=== PATIENT | female | born 1960 | race Hispanic/Latino ===

== ENCOUNTER 2025-02-12 09:00 | Inpatient (IN) | payer OTHER ==
[~2025-02-12] VITALS: Ht 160 cm; Wt 89.9 kg
[~2025-02-12 09:00] MED LIST: ASPI-1005 PO; INSU3INS3 SQ; MYCO500T5 PO; NITR0.4T50 SL; TACR1CAP10 PO
[2025-02-26 12:34] VITALS: BP 173/69; PULSE 59; RESP 13; TEMP 97.2
[2025-02-26 12:34] LABS: BASOPHILS # (AUTO) 0.06 K/uL (0.00-0.20); BASOPHILS % (AUTO) 0.9 % (0.0-5.0); EOSINOPHILS # (AUTO) 0.17 K/uL (0.00-0.70); EOSINOPHILS % (AUTO) 2.5 % (0.0-8.0); HEMATOCRIT 36.7 % (36-48); IMMATURE GRANULOCYTE ABSOLUTE 0.02 K/uL (0-1); LYMPHOCYTES # (AUTO) 1.3 K/uL (1.0-4.8); LYMPHOCYTES % (AUTO) 19.4 % (21.0-51.0); MEAN CORPUSCULAR HEMOGLOBIN 28.9 pg (27.0-33.0); MEAN CORPUSCULAR HGB CONC 32.2 g/dL (32.0-36.0); MEAN CORPUSCULAR VOLUME 89.7 fL (79-99); MONOCYTES # (AUTO) 0.4 K/uL (0.1-1.0); MONOCYTES % (AUTO) 5.8 % (3.0-13.0); NEUTROPHILS # (AUTO) 4.8 K/uL (1.8-7.7); NEUTROPHILS % (AUTO) 71.1 % (40.0-77.0); PLATELET COUNT (AUTO) 221 K/uL (130-400); RED BLOOD CELL COUNT(AUTO) 4.09 MIL/uL (4.00-5.50); RED CELL DISTRIBUTION WIDTH 13.5 % (11.0-15.5); WHITE BLOOD COUNT (AUTO) 6.8 K/uL (4.8-10.8)
[2025-02-26 12:40] LABS: HEMOGLOBIN A1C 5.9 % (4.0-6.0)
[2025-02-26 12:41] LABS: INR 0.97 (0.85-1.15); PROTHROMBIN TIME 10.3 SEC (9.6-11.6)
[2025-02-26 12:42] LABS: PARTIAL THROMBOPLASTIN TIME 24.1 SEC (26.3-35.5)
[2025-02-26 12:44] LABS: ALBUMIN 4.1 g/dL (3.5-5.0); BILIRUBIN,TOTAL 0.5 mg/dL (0.2-1.0); CREATININE 1.1 mg/dL (0.5-1.0); POTASSIUM 4.5 mmol/L (3.5-5.1); TOTAL PROTEIN, SERUM 7.2 g/dL (6.0-8.3)
[2025-02-26 12:59] LABS: B-TYPE NATRIURETIC PEPTIDE 73 pg/mL (0-100)
[2025-02-26 13:24] LABS: ABG BASE EXCESS -7.3 mmol/L (-2.0-3.0); ABG HCO3 17.1 mmol/L (21.0-28.0); ABG OXYGEN SATURATION 96.9 % (94.0-98.0); ABG PCO2 31 mmHg (32-45); ABG PH 7.357 (7.350-7.450); CARBON MONOXIDE 0.2 % (0.5-1.5); DEVICE COMMENT RR RA; HHb 3.1; PO2, ARTERIAL BG 91.4 mmHg (83.0-108.0)
--- NOTE | 2025-02-26 14:00 | HMCIMG ---
Carotid Duplex and color-flow Doppler bilateral Clinical Information: SURGERY DATE 03/01/25 Comparison: None Findings: Mild left common carotid artery bifurcation plaque is seen. No hemodynamically significant stenosis noted. Left Internal Carotid Artery Peak Systolic Velocity (PSV), Left Internal Carotid to Common Carotid Artery peak systolic velocity ratio, Right Internal Carotid Artery Peak Systolic Velocity (PSV) and Right Internal Carotid to Common Carotid Artery peak systolic velocity ratio, are all within normal limits. External carotid artery velocities normal bilaterally. Bilateral vertebral arteries show normal velocities and waveforms with antegrade flow. Impression: No hemodynamically significant stenosis noted. NASCET CRITERIA. The degree of internal carotid artery stenosis is based on NASCET criteria. Normal is no stenosis. Mild is less than 50% stenosis. Moderate is 50-69% stenosis. Severe is 70% to 99% stenosis. Total occlusion is no detectable patent lumen.
--- NOTE | 2025-02-26 14:13 | EKG ---
[facility] Test Date: 2025-02-26 Test Time: 12:26:50 Pat Name: HARI GTZ Department: Patient ID: [id number] Room: Gender: F Esl Instructional Assistant: [id number] : 1960 Requested By: SUE SCHAFFER Order Number: [id number] Reading MD: Gloria Rodriguez Measurements Intervals [place] Rate: 59 P: 20 AR: 135 QRS: -23 QRSD: 103 T: 22 QT: 404 QTc: 400 Interpretive Statements Sinus rhythm Low voltage, precordial leads Probable left ventricular hypertrophy Compared to ECG 01/04/2025 13:07:39 Early repolarization no longer present Electronically Signed On 02-26-2025 18:39:54 CDT by Gloria Rodriguez Please click the below link to view image of tracing.
[2025-02-26] MEDS ORDERED: BRIM5DRO5 OS (14:21)
[2025-02-26] MEDS ORDERED: ATOR10 PO (14:21)
[2025-02-26] MEDS ORDERED: INSU100I3 SQ (14:21)
[2025-02-26] MEDS ORDERED: XALA2.5OS OS (14:21)
[2025-02-26] MEDS ORDERED: ISOS30TA92 PO (14:21)
[2025-02-26] MEDS ORDERED: LEVO88TA7 PO (14:21)
[2025-02-26] MEDS ORDERED: METO-391 PO (14:21)
--- NOTE | 2025-02-26 14:43 | HMCIMG ---
Exam Type: CHEST 1VW Clinical Information: PRE OP Comparison: None Findings: The lungs are clear of infiltrates. The heart is normal in size. The bony and soft tissue structures of the chest are unremarkable. Impression: Clear lungs.
--- NOTE | 2025-02-26 16:15 | NUR ---
RE: LABS REPORTED ABG RESULTS TO DR SCHAFFER/CORARN NO NEW ORDERS RECEIVED.
[2025-03-01] VITALS (52 sets, daily range): BP systolic 102–214; BP diastolic 49–214; PULSE 67–105; RESP 10–22; TEMP 96–98.1; O2SAT 10–100
[2025-03-01] MEDS ORDERED: NOREPINEPHRIN 8MG/250ML NS 250 ML IV PRN (06:30)
[2025-03-01] MEDS ORDERED: aminoCAProic ACID 5,000MG VIAL 15,000 MG in 0.9% NACL 500ML IV.SOLN 420 ML IV PRN (06:30)
[2025-03-01] MEDS ORDERED: EPINEPHrine PF 1MG (1:1,000) 10 MG in 0.9% NACL 250ML 240 ML IV PRN ×2 (06:30→09:30)
[2025-03-01] MEDS ORDERED: ceFAZolin SODIUM 1 GM VIAL ONE (06:44)
[2025-03-01] MEDS ORDERED: HEParin-NS 1,000 UNIT/500 ML 500 ML IV ONE (06:44)
[2025-03-01] MEDS ORDERED: PAPAVERINE HCL 30 MG/ML 2ML VIAL ONE (06:45)
[2025-03-01] MEDS ORDERED: NITROGLYCERIN 50MG/D5W 250ML 1 BOT ONE (06:54)
[2025-03-01] MEDS: 0.9%NACL 1000ML 1,000 ML IV ONE (07:25)
[2025-03-01] MEDS: ceFAZolin SODIUM 2 GM VIAL ONE (07:25)
[2025-03-01] MEDS: ceFAZolin SODIUM 2 GM VIAL IVPB ONE ×2 (07:50)
[2025-03-01] MEDS ORDERED: LIDOCAINE PF 100MG/5ML (2%) SYRINGE 5ML ONE (07:57)
[2025-03-01] MEDS ORDERED: EPINEPHrine PF 1MG (1:1,000) 1 MG/ML AMP ONE (07:57)
[2025-03-01] MEDS ORDERED: NOREPINEPHRINE BITARTRATE 1 MG/1 ML ML IV ONE (07:57)
[2025-03-01] MEDS ORDERED: SODIUM BICARB 50MEQ 50ML VIAL 200 ML ONE ×2 (07:57→08:42)
[2025-03-01] MEDS ORDERED: PROTamine SULFate 10 MG/ML 25ML VIAL IV ONE (07:57)
[2025-03-01] MEDS ORDERED: HEParin 10,000 UNIT/10ML (1,000 UNIT/ML) VIAL ONE ×3 (07:57→09:16)
[2025-03-01] MEDS ORDERED: rocuRONium bROMide 10MG/1ML 5ML VL ONE (07:58)
[2025-03-01] MEDS ORDERED: proPOFol 10 MG/ML 20ML VIAL IV ONE (07:58)
[2025-03-01] MEDS ORDERED: MIDAZOLAM HCL 1 MG/ML 2ML VIAL ONE (07:58)
[2025-03-01] MEDS ORDERED: FENTanyl CITRate PF 50 MCG/1 ML 20ML VIAL IJ ONE (07:58)
[2025-03-01] MEDS ORDERED: ketaMINE HCL 100 MG/ML 5ML VIAL IJ ONE (07:59)
[2025-03-01 08:34] LABS: ABG BASE EXCESS -11.8 mmol/L (-2.0-3.0); ABG HCO3 13.4 mmol/L (21.0-28.0); ABG OXYGEN SATURATION 99.1 % (94.0-98.0); ABG PCO2 28 mmHg (32-45); ABG PH 7.296 (7.350-7.450); CARBON MONOXIDE 0.3 % (0.5-1.5); DEVICE COMMENT 1; HHb 0.9; PO2, ARTERIAL BG 282.1 mmHg (83.0-108.0)
[2025-03-01 08:40] LABS: ABG BASE EXCESS -9.9 mmol/L (-2.0-3.0); ABG HCO3 15.6 mmol/L (21.0-28.0); ABG OXYGEN SATURATION 99.4 % (94.0-98.0); ABG PCO2 33 mmHg (32-45); ABG PH 7.295 (7.350-7.450); CARBON MONOXIDE 0.3 % (0.5-1.5); DEVICE COMMENT 1; HHb 0.6; PO2, ARTERIAL BG 403.7 mmHg (83.0-108.0)
[2025-03-01 09:27] LABS: ABG BASE EXCESS -0.7 mmol/L (-2.0-3.0); ABG HCO3 24.6 mmol/L (21.0-28.0); ABG PCO2 44 mmHg (32-45); CARBON MONOXIDE 0.2 % (0.5-1.5); DEVICE COMMENT 2; PO2, ARTERIAL BG 468.3 mmHg (83.0-108.0)
[2025-03-01] MEDS ORDERED: morPHINE 2 MG SYG IV PRN (09:30)
[2025-03-01] MEDS ORDERED: NITROGLYCERIN 50MG/D5W 250ML 250 BOT IV SCH (09:30)
[2025-03-01] MEDS ORDERED: acetaMINOPHEN 650 MG SUPPOSITORY RC PRN (09:30)
[2025-03-01] MEDS ORDERED: aminoCAProic ACID 5,000MG VIAL 15,000 MG in 0.9% NACL 250ML 250 ML IV SCH (09:30)
[2025-03-01] MEDS ORDERED: CALCIUM GLUC 1GM 1 GM in 0.9%NACL 50ML 50 ML IV PRN (09:30)
[2025-03-01] MEDS ORDERED: LACTULOSE 20 GM/30 ML UDCUP PO PRN (09:30)
[2025-03-01] MEDS ORDERED: proPOFol 1000 MG/100 ML 100 ML IV PRN (09:30)
[2025-03-01] MEDS ORDERED: MAGNESIUM HYDROXIDE 30 ML/UDCUP PO PRN (09:30)
[2025-03-01] MEDS ORDERED: GLUCAGON 1MG KIT 1 MG ML IM PRN (09:30)
[2025-03-01] MEDS ORDERED: NOREPINEPHRINE BITARTRATE 8 MG in DEXTROSE 5%-WATER 250 ML IV PRN (09:30)
[2025-03-01] MEDS ORDERED: poTASSium PHOS 15 mMOL+NS250ML 250 ML IV PRN (09:30)
[2025-03-01] MEDS ORDERED: 0.9% NACL 500ML IV.SOLN 500 ML IV SCH (09:30)
[2025-03-01] MEDS ORDERED: traMADol HCL 50 MG TABLET PO PRN (09:30)
[2025-03-01] MEDS ORDERED: 0.9%NACL 10ML VIAL IVP PRN (09:30)
[2025-03-01] MEDS ORDERED: DEXTROSE 50%-WATER 50 ML DISP.SYRIN IV PRN (09:30)
[2025-03-01] MEDS ORDERED: acetaMINOPHEN 325 MG TAB PO PRN (09:30)
[2025-03-01] MEDS ORDERED: ALBUMIN (HUMAN) 5% 250 ML IV PRN (09:30)
[2025-03-01] MEDS ORDERED: dexmedeTOMIDine 400MCG/NS100ML IV SCH (09:30)
[2025-03-01 10:50] LABS: ABG BASE EXCESS -6.8 mmol/L (-2.0-3.0); ABG HCO3 18.9 mmol/L (21.0-28.0); ABG OXYGEN SATURATION 99.1 % (94.0-98.0); ABG PCO2 39 mmHg (32-45); ABG PH 7.305 (7.350-7.450); CARBON MONOXIDE 0.3 % (0.5-1.5); DEVICE COMMENT 4; HHb 0.9; PO2, ARTERIAL BG 314.2 mmHg (83.0-108.0)
[2025-03-01 11:30] LABS: ABG BASE EXCESS 1.5 mmol/L (-2.0-3.0); ABG HCO3 26.3 mmol/L (21.0-28.0); ABG OXYGEN SATURATION 98.9 % (94.0-98.0); ABG PCO2 43 mmHg (32-45); CARBON MONOXIDE 0.3 % (0.5-1.5); DEVICE COMMENT SIMV ALINE; HHb 1.1; PO2, ARTERIAL BG 334.1 mmHg (83.0-108.0); VENT MODE, BG SIMV EDDIERN (ROOM AIR)
[2025-03-01 11:39] LABS: HEMATOCRIT 25.3 % (36-48); MEAN CORPUSCULAR HEMOGLOBIN 29.8 pg (27.0-33.0); MEAN CORPUSCULAR HGB CONC 34.4 g/dL (32.0-36.0); MEAN CORPUSCULAR VOLUME 86.6 fL (79-99); RED BLOOD CELL COUNT(AUTO) 2.92 MIL/uL (4.00-5.50); RED CELL DISTRIBUTION WIDTH 13.6 % (11.0-15.5); WHITE BLOOD COUNT (AUTO) 15.3 K/uL (4.8-10.8)
[2025-03-01] MEDS: 0.9%NACL 1000ML 1,000 ML IV SCH (11:45)
[2025-03-01] MEDS: morPHINE 2 MG SYG IV PRN (11:46)
[2025-03-01 11:50] LABS: INR 1.17 (0.85-1.15); PROTHROMBIN TIME 12.2 SEC (9.6-11.6)
[2025-03-01 11:52] LABS: PARTIAL THROMBOPLASTIN TIME 23.3 SEC (26.3-35.5)
[2025-03-01] MEDS: INSULIN REGULAR, HUMAN 3ML 100 UNIT in 0.9%NACL 100ML 99 ML IV SCH (11:59)
--- NOTE | 2025-03-01 12:00 | HMCIMG ---
Exam Type: CHEST 1VW Clinical Information: s/p CABG Comparison: None Findings: The heart is enlarged and there is status post median sternotomy and CABG. Left-sided chest tube is noted in place and there is no pneumothorax. The lungs are clear. Endotracheal and nasogastric tubes are seen in place. Femoral line seen with tip near mid chest level. Right central line is noted. IMPRESSION: Status post recent CABG. Clear lungs.
[2025-03-01] MEDS: acetaMINOPHEN 1,000 MG/100 ML VIAL IV SCH (12:02)
[2025-03-01] MEDS: ASPIRIN 81MG CHEW TAB NG ONE (12:02)
[2025-03-01] MEDS: PoTASSium chloRIDE 20MEQ/100ML 100 ML IV PRN (12:11)
--- NOTE | 2025-03-01 12:12 | EKG ---
[facility] Test Date: 2025-03-01 Test Time: 11:35:46 Pat Name: HARI GTZ Department: 2CV Room: 213 1 Gender: F Monitor Technician: [id number] : 1960 Requested By: SUE SCHAFFER Order Number: [id number] Reading MD: Lori Avila Measurements Intervals [place] Rate: 92 P: 28 AK: 199 QRS: -31 QRSD: 93 T: 123 QT: 394 QTc: 486 Interpretive Statements Sinus rhythm Left axis deviation Low voltage, precordial leads Compared to ECG 02/26/2025 12:26:50 Left-axis deviation now present Electronically Signed On 03-01-2025 14:24:40 CDT by Lori Avila Please click the below link to view image of tracing.
[2025-03-01 12:14] LABS: CREATININE 0.9 mg/dL (0.5-1.0); MAGNESIUM 1.3 mg/dL (1.80-2.40); PHOSPHORUS 3.7 mg/dL (2.5-4.9); POTASSIUM 3.3 mmol/L (3.5-5.1)
[2025-03-01] MEDS: MAGNESIUM 2GM PREMIX 50ML 50 ML IV PRN (12:26)
[2025-03-01] MEDS: tacrOLIMUS 1 MG CAPSULE PO SCH (12:33)
[2025-03-01 12:35] LABS: ABG BASE EXCESS -0.7 mmol/L (-2.0-3.0); ABG HCO3 23.3 mmol/L (21.0-28.0); ABG OXYGEN SATURATION 98.9 % (94.0-98.0); ABG PCO2 36 mmHg (32-45); CARBON MONOXIDE 0.3 % (0.5-1.5); DEVICE COMMENT AL,EDDIE,RN; HHb 1.1; PO2, ARTERIAL BG 280.7 mmHg (83.0-108.0); VENT MODE, BG SIMV, PS10 (ROOM AIR)
--- NOTE | 2025-03-01 13:00 | NUR ---
Patient s/p CABG 03/01/25
[2025-03-01 13:47] LABS: ABG BASE EXCESS -2.2 mmol/L (-2.0-3.0); ABG HCO3 22.7 mmol/L (21.0-28.0); ABG OXYGEN SATURATION 98.3 % (94.0-98.0); ABG PCO2 39 mmHg (32-45); ABG PH 7.383 (7.350-7.450); CARBON MONOXIDE 0.3 % (0.5-1.5); DEVICE COMMENT AL,EDDIE,RN; HHb 1.7; PO2, ARTERIAL BG 159.2 mmHg (83.0-108.0); VENT MODE, BG SIMV, PS10 (ROOM AIR)
[2025-03-01] MEDS: SODIUM BICARB 50MEQ 50ML VIAL IV PRN (13:55)
[2025-03-01] MEDS: BRIMONIDINE TARTRATE 0.2% 5 ML BOTTLE OS SCH (14:00)
[2025-03-01] MEDS: ceFAZolin SODIUM 2 GM VIAL IVPB SCH (14:13)
[2025-03-01 14:41] LABS: ABG BASE EXCESS -2.9 mmol/L (-2.0-3.0); ABG HCO3 21.8 mmol/L (21.0-28.0); ABG OXYGEN SATURATION 97.1 % (94.0-98.0); ABG PCO2 38 mmHg (32-45); ABG PH 7.382 (7.350-7.450); CARBON MONOXIDE 0.3 % (0.5-1.5); DEVICE COMMENT EDDIERN ALINE; HHb 2.9; PO2, ARTERIAL BG 109.3 mmHg (83.0-108.0); VENT MODE, BG SIMV (ROOM AIR)
--- NOTE | 2025-03-01 15:20 | NUR ---
SPEECH TRIGGER COMPLETED (INTUBATION). Pt IS A 64 Y.O. FEMALE ADMITTED SECONDARY TO CAD. Pt CURRENTLY INTUBATED AND NPO. PLEASE REQUEST SPEECH THERAPY SERVICES FOR SKILLED BEDSIDE SWALLOW EVALUATION 24 HOURS POST EXTUBATION IF ANY S/S OF ASPIRATION ARISE WITH ORAL INTAKE. TOOL FILER COORDINATED WITH NURSE YANEZ. ALL QUESTIONS ANSWERED AT THIS TIME. Addendum: 03/02/[address] ALISE JEREZ Amended: Links added.
--- NOTE | 2025-03-01 15:54 | CONS ---
[facility] CARDIOLOGY CONSULTATION NOTE Date Patient Seen: March 01, 2025 Time of Visit: 15:32 Requesting Physician: Dr Scottie CAMILO Reason for Consultation: CAD post CABG History of Present Illness: Patient is a 64-year-old female with past medical history of hypertension, dyslipidemia, hypothyroidism, breast cancer status post right mastectomy, type 2 diabetes mellitus, ESRD now status post history of kidney transplant, sleep apnea, vomiting with fenofibrate therapy, coronary artery disease with history of remote PTCA and stenting. Patient's primary crown blocker is Dr. Cid. She was seen with complaints of progressively worsening dyspnea on exertion, undergoing Lexiscan Cardiolite stress test in October 2024 showing moderate inferolateral ischemia. Follow-up coronary angiography in December showed severe three-vessel CAD including 60 to 70% in-stent restenosis of the mid LAD, 60% in-stent restenosis of the first diagonal, 80% OM1 stenosis, 75% OM2 stenosis, 75% mid left circumflex stenosis and diffuse 90% mid RCA stenosis and a small dominant RCA. LVEF was greater than 70% preoperatively. Patient was admitted for scheduled coronary artery bypass grafting. She underwent two-vessel CABG with Dr. Love on 03/01/2025 with an ESPINOSA to LAD and a VG (from LLE) to OM 2. No complications intraoperatively reported. She was seen in the ICU post bypass on low-dose epinephrine drip, awake alert and following basic motor commands. She remains mechanically vented not on any sedation. Past Medical History: as noted above Past Surgical History: Renal transplant in 2018 Coronary stentin.5x28mm Promus SAMANTHA in 01/2014, 2.5x28 mm BMS to mid LAD and 2.5x12 mm BMS to D1 in 2017 at [facility] Right mastectomy Right eye surgery Family History: positive for heart disease and diabetes Social History: nonsmoker, non ETOH user Home Meds: Mycophenolate Mofetil to 50 mg twice a day Metoprolol succinate 50 mg once a day Atorvastatin 20 mg once a day Tacrolimus 1 mg twice a day Lantus and NovoLog, unknown dosages Levothyroxine 100 mcg 1 tablet daily Isosorbide mononitrate 60 mg half tablet once a day Aspirin 81 mg 1 tablet daily Current Meds: Current Medications Medications Dose Ordered Sig/Stacey Start Time Stop Time Status Last Admin Epinephrine HCl 10 mg/Sodium Chloride 250 ml @ 0 mls/hr AD PRN 03/01/25 06:30 03/31/25 06:29 Norepinephrine Bitartrate 250 ml @ 0 mls/hr AD PRN 03/01/25 06:30 03/31/25 06:29 Aminocaproic Acid 62777 mg/Sodium Chloride 480 ml @ 0 mls/hr AD PRN 03/01/25 06:30 03/31/25 06:29 Brimonidine Tartrate 1 DROP TID 03/01/25 14:00 03/31/25 13:59 Latanoprost 1 DROP HS 03/01/25 21:00 03/31/25 20:59 Levothyroxine Sodium 88 mcg SYN 03/02/25 06:30 04/01/25 06:29 Tacrolimus 3 mg Q12H 03/01/25 09:30 03/31/25 09:29 Mycophenolate Mofetil 500 mg BID 03/01/25 21:00 03/31/25 20:59 Acetaminophen 1,000 mg Q6H6 03/01/25 12:00 03/02/25 11:59 03/01/25 12:02 Aspirin 81 mg DAILY 03/02/25 09:00 04/01/25 08:59 Docusate Sodium 100 mg BID 03/01/25 21:00 03/31/25 20:59 Lactulose 20 gm BID PRN 03/01/25 09:30 03/31/25 09:29 Furosemide 20 mg Q12H 03/03/25 09:00 04/02/25 08:59 Furosemide 20 mg Q12H 03/02/25 09:00 03/03/25 08:59 Atorvastatin Calcium 40 mg HS 03/01/25 21:00 03/31/25 20:59 Enoxaparin Sodium 30 mg DAILY 03/04/25 09:00 04/03/25 08:59 Metoprolol Tartrate 12.5 mg BID 03/03/25 09:00 04/02/25 08:59 Magnesium Hydroxide 30 ml DAILY PRN 03/01/25 09:30 03/31/25 09:29 Dexmedetomidine/ Sodium Chloride 400 mcg PROTOCOL 03/01/25 09:30 03/02/25 09:29 Acetaminophen 650 mg Q6H PRN 03/01/25 09:30 03/31/25 09:29 Sodium Chloride 1,000 ml @ 10 mls/hr ONCE 03/01/25 09:30 03/02/25 09:29 03/01/25 11:45 Sodium Chloride 10 ml Q8H PRN 03/01/25 09:30 03/31/25 09:29 Morphine Sulfate 0.5 mg Q2H PRN 03/01/25 09:30 03/02/25 09:29 Morphine Sulfate 1 mg Q2H PRN 03/01/25 09:30 03/02/25 09:29 03/01/25 11:46 Acetaminophen 650 mg Q4H PRN 03/01/25 09:30 03/31/25 09:29 Ondansetron HCl 4 mg Q6H PRN 03/01/25 09:30 03/31/25 09:29 Sodium Chloride 500 ml @ 0 mls/hr AD 03/01/25 09:30 03/31/25 09:29 Nitroglycerin/ Dextrose 0 ml @ 0 mls/hr AD 03/01/25 09:30 03/04/25 09:29 Propofol 100 ml @ 0 mls/hr AD PRN 03/01/25 09:30 03/05/25 09:29 Calcium Gluconate 1 gm/Sodium Chloride 60 ml @ 200 mls/hr AD PRN 03/01/25 09:30 03/31/25 09:29 Magnesium Sulfate 50 ml @ 12.5 mls/hr AD PRN 03/01/25 09:30 03/31/25 09:29 03/01/25 12:26 Potassium Chloride 100 ml @ 100 mls/hr AD PRN 03/01/25 09:30 03/31/25 09:29 03/01/25 13:55 Potassium Phosphate 250 ml @ 42 mls/hr AD PRN 03/01/25 09:30 03/31/25 09:29 Albumin Human 250 ml @ 0 mls/hr AD PRN 03/01/25 09:30 Acetaminophen 650 mg Q4H PRN 03/01/25 09:30 03/31/25 09:29 Insulin Human Regular 100 unit/ Sodium Chloride 100 ml @ 0 mls/hr AD 03/01/25 09:30 03/03/25 09:29 03/01/25 11:59 Cefazolin Sodium 2 gm Q8H 03/01/25 14:30 03/02/25 06:31 03/01/25 14:13 Tramadol HCl 25 mg Q6H PRN 03/01/25 09:30 03/06/25 09:29 Tramadol HCl 50 mg Q6H PRN 03/01/25 09:30 03/06/25 09:29 Famotidine 20 mg Q24H 03/01/25 21:00 03/31/25 20:59 Sodium Bicarbonate 50 meq AD PRN 03/01/25 09:30 03/04/25 09:29 03/01/25 14:42 Dextrose 50 ml AD PRN 03/01/25 09:30 03/31/25 09:29 Glucagon 1 mg AD PRN 03/01/25 09:30 03/31/25 09:29 Review of Systems: patient gestures ROS positive for chest pain, however notes it is mild Limited ROS as patient on ventilator, immediately post surgery Physical Examination: GENERAL: [No acute distress.] HEAD: [Normal with no signs of head trauma.] EYES: [PERRLA, EOMI, conjunctiva and sclera normal.] NECK: [ Normal carotid upstrokes without bruits.] LUNGS: [Clear breath sounds bilaterally. Diminished inspiratory effort. No distress. On ventilator. No wheezes, or rhonchi.] HEART: [Normal rate and rhythm. Normal S1 and S2 without murmurs, gallop or rub.] VASC: [Peripheral pulses +2 bilaterally.] ABD: [soft, nontender, nondistended.] : [walker to gravity EXT: [No cyanosis or edema.] SKIN: [No rashes or lesions noted.] NEURO: [Awake, alert. Moves all extremities on command.] Vital Signs (last 8hr) Date Time Temp Pulse Resp B/P (MAP) Pulse Ox O2 Delivery O2 Flow Rate FiO2 03/01/25 14:49 88 40 03/01/25 14:45 90 14 138/55 (82) 99 03/01/25 14:44 90 14 137/55 (82) 99 124/65 (84) 03/01/25 14:30 88 17 134/55 (81) 100 03/01/25 14:15 88 17 130/55 (80) 99 03/01/25 14:00 88 13 116/49 (71) 99 03/01/25 13:45 84 16 156/61 (92) 99 128/68 (88) 03/01/25 13:30 86 16 148/61 (90) 100 03/01/25 13:15 86 16 146/65 (92) 100 03/01/25 13:00 86 17 150/66 (94) 100 60 03/01/25 13:00 98.1 Ventilator 60 03/01/25 12:45 87 17 153/67 (95) 100 130/75 (93) 03/01/25 12:30 90 16 185/79 (114) 100 03/01/25 12:15 80 16 120/58 (78) 100 03/01/25 12:00 78 16 112/56 (74) 100 03/01/25 11:45 86 16 164/68 (100) 100 141/82 (101) 03/01/25 11:30 100 03/01/25 11:30 93 16 199/78 (118) 100 158/85 (109) 03/01/25 11:30 86 100 03/01/25 11:30 10 Ventilator+ 0 100 03/01/25 11:15 96.1 93 16 164/69 (100) 100 100 Laboratory: [ ] Hematology Labs: Test 03/01/25 11:31 Range/Units White Blood Count 15.3 H 4.8-10.8 K/uL Red Blood Count 2.92 L 4.00-5.50 MIL/uL Hemoglobin 8.7 #L 12.0-16.0 g/dL Hematocrit 25.3 #L 36-48 % Mean Corpuscular Volume 86.6 79-99 fL Mean Corpuscular Hemoglobin 29.8 27.0-33.0 pg Mean Corpuscular Hemoglobin Concent 34.4 32.0-36.0 g/dL Red Cell Distribution Width 13.6 11.0-15.5 % Platelet Count 173 130-400 K/uL Mean Platelet Volume 10.8 H 7.5-10.5 fL Nucleated Red Blood Cells 0.0 0.0-0.19 % Chemistry Labs: Test 03/01/25 11:31 03/01/25 06:39 Range/Units Sodium Level 155 H 136-145 mmol/L Potassium Level 3.3 L 3.5-5.1 mmol/L Chloride Level 117 H 101-111 mmol/L Carbon Dioxide Level 26 21-32 mmol/L Blood Urea Nitrogen 28 H 7-18 mg/dL Creatinine 0.9 0.5-1.0 mg/dL Glomerular Filtration Rate Calc 71 >90 mL/min Random Glucose 265 H 70-105 mg/dL Total Calcium 9.1 8.5-10.1 mg/dL Phosphorus Level 3.7 2.5-4.9 mg/dL Magnesium Level 1.30 L 1.80-2.40 mg/dL Whole Blood Glucose 131 H 70-110 MG/DL Coagulation Labs: Test 03/01/25 11:31 Range/Units Prothrombin Time 12.2 H 9.6-11.6 SEC Prothromb Time International Ratio 1.17 H 0.85-1.15 Activated Partial Thromboplast Time 23.3 L 26.3-35.5 SEC Assessment: CAD hx CABG Post operative hypotension, expected Respiratory insufficiency, expected post operatively Hypokalemia Post operative anemia T2DM hx renal transplant Hypothyroidism T2DM Plan: Resume low dose ASA Resume high intensity statin therapy Initiate BB once weaned from vasopressor support and stable hemodynamics >24 hours, timing per CTS Continuous telemetry monitoring Repletion of electrolytes to goal K >/= 4.0 and Mg >/= 2.0 Blood glucose monitoring with goal glucose <200 during hospitalization. ROGELIO DICK DO March 01, 2025 15:54
[2025-03-01 16:20] LABS: ABG BASE EXCESS -0.1 mmol/L (-2.0-3.0); ABG HCO3 24.2 mmol/L (21.0-28.0); ABG OXYGEN SATURATION 97.4 % (94.0-98.0); ABG PCO2 38 mmHg (32-45); ABG PH 7.418 (7.350-7.450); CARBON MONOXIDE 0.3 % (0.5-1.5); HHb 2.6; PO2, ARTERIAL BG 109.6 mmHg (83.0-108.0); VENT MODE, BG SIMV (ROOM AIR)
--- NOTE | 2025-03-01 16:30 | NUR ---
Patient extubated as per protocol at this time and placed on aerosol mask 40%
[2025-03-01] MEDS: ondanSETRON 4MG INJ IV PRN (17:10)
[2025-03-01 17:19] LABS: ABG BASE EXCESS -1.4 mmol/L (-2.0-3.0); ABG HCO3 24.3 mmol/L (21.0-28.0); ABG OXYGEN SATURATION 95.2 % (94.0-98.0); ABG PCO2 45 mmHg (32-45); CARBON MONOXIDE 0.3 % (0.5-1.5); HHb 4.8; PO2, ARTERIAL BG 84.7 mmHg (83.0-108.0); VENT MODE, BG CAFM (ROOM AIR)
--- NOTE | 2025-03-01 18:54 | CONS ---
[facility] CONSULTATION NOTE Date Patient Seen: March 01, 2025 Time of Visit: 18:51 Supervising Physician: Dr. Horan Reason for Consultation: Severe CAD s/p CABG Primary Care Physician: Dr. Aurelia Sandoval Outpatient Specialists: [ ] Inpatient Consults: [ ] PROBLEM LIST: Severe multivessel CAD s/p CABG x2 03/01/2025, by Dr. Rubin Hypertension. Dyslipidemia. Hypothyroidism. ESRD, previously on hemodialysis , nows/p kidney transplant. Hypokalemia. Hypomagnesemia. Reactive leukocytosis. T2DM History of breast cancer status post right mastectomy. HPI: This is a 64-year-old female patient with past medical history that is significant for hypertension, dyslipidemia, hypothyroidism, breast cancer status post right mastectomy, type 2 diabetes mellitus, ESRD now status post history of kidney transplant, sleep apnea, intolerance to fenofibrate therapy and coronary artery disease with history of remote PTCA and stenting. Unfortunately, the patient developed dyspnea which was worsening with exertion. Cardiology specialty consultation was sought and the patient underwent a Lexiscan back in October of 2024. This showed reversible ischemia for which the patient underwent coronary angiography which revealed severe multivessel disease the patient was referred for CT VS consultation and elective Cardiothoracic surgery was arranged. Today, the patient was brought in to undergo CABG x2 with Dr. Rubin. Postoperatively, the patient was brought into the ICU for further management and postoperative recovery. At the time of my visit, the patient remain intubated and mechanically vented and on epinephrine and insulin drip. During my visit, the patient was in her assigned room. The staff nurse reports no acute events otherwise. PAST MEDICAL HX: see above PAST SURGICAL HX: noncontributory SOCIAL HISTORY: No tobacco, ETOH, or illicit drug use Coded Allergies: No Known Drug Allergies (Unverified Allergy, Unknown, 01/04/25) REVIEW OF SYSTEMS: Sedated and intubated PHYSICAL EXAM: GENERAL: Mechanically vented HEENT: EOMI, Sclera non icteric, moist mucosa NECK: Supple, no JVD, trachea midline LUNGS: Clear breath sounds bilaterally. No wheezes HEART: Regular rate and rhythm. Normal S1 and S2, without murmurs ABD: Abdomen soft, nontender. Bowel sounds present EXT: No clubbing cyanosis or edema NEURO: Sedated Vital Signs (last 8hr) Date Time Temp Pulse Resp B/P (MAP) Pulse Ox O2 Delivery O2 Flow Rate FiO2 5/19/25 18:15 95 17 125/55 (78) 96 03/01/25 18:00 97 18 126/54 (78) 96 03/01/25 17:45 99 17 145/58 (87) 97 128/68 (88) 03/01/25 17:30 99 19 167/62 (97) 98 03/01/25 17:15 98 18 130/53 (78) 98 03/01/25 17:00 96 22 214/214 (214) 98 03/01/25 16:45 99 16 130/57 (81) 99 115/68 (84) 03/01/25 16:30 96 16 102/49 (66) 99 03/01/25 16:30 105 14 8.0 40 03/01/25 16:15 104 12 171/68 (102) 99 03/01/25 16:00 102 10 112/49 (70) 100 03/01/25 15:45 100 14 130/55 (80) 99 124/69 (87) 03/01/25 15:30 10 Ventilator+ 0 40 03/01/25 15:30 98 15 137/58 (84) 99 03/01/25 15:15 92 16 105/50 (68) 99 03/01/25 15:00 91 16 131/55 (80) 100 03/01/25 14:49 88 40 03/01/25 14:45 90 14 138/55 (82) 99 03/01/25 14:44 90 14 137/55 (82) 99 124/65 (84) 03/01/25 14:30 88 17 134/55 (81) 100 03/01/25 14:15 88 17 130/55 (80) 99 03/01/25 14:00 88 13 116/49 (71) 99 03/01/25 13:45 84 16 156/61 (92) 99 128/68 (88) 03/01/25 13:30 86 16 148/61 (90) 100 03/01/25 13:15 86 16 146/65 (92) 100 03/01/25 13:00 86 17 150/66 (94) 100 60 03/01/25 13:00 98.1 Ventilator 60 03/01/25 12:45 87 17 153/67 (95) 100 130/75 (93) 03/01/25 12:30 90 16 185/79 (114) 100 03/01/25 12:15 80 16 120/58 (78) 100 03/01/25 12:00 78 16 112/56 (74) 100 03/01/25 11:45 86 16 164/68 (100) 100 141/82 (101) 03/01/25 11:30 100 03/01/25 11:30 93 16 199/78 (118) 100 158/85 (109) 03/01/25 11:30 86 100 03/01/25 11:30 10 Ventilator+ 0 100 03/01/25 11:15 96.1 93 16 164/69 (100) 100 100 LABS: Hematology Labs: Test 03/01/25 11:31 Range/Units White Blood Count 15.3 H 4.8-10.8 K/uL Red Blood Count 2.92 L 4.00-5.50 MIL/uL Hemoglobin 8.7 #L 12.0-16.0 g/dL Hematocrit 25.3 #L 36-48 % Mean Corpuscular Volume 86.6 79-99 fL Mean Corpuscular Hemoglobin 29.8 27.0-33.0 pg Mean Corpuscular Hemoglobin Concent 34.4 32.0-36.0 g/dL Red Cell Distribution Width 13.6 11.0-15.5 % Platelet Count 173 130-400 K/uL Mean Platelet Volume 10.8 H 7.5-10.5 fL Nucleated Red Blood Cells 0.0 0.0-0.19 % Chemistry Labs: Test 03/01/25 18:20 03/01/25 11:31 Range/Units Whole Blood Glucose 149 H 70-110 MG/DL Sodium Level 155 H 136-145 mmol/L Potassium Level 3.3 L 3.5-5.1 mmol/L Chloride Level 117 H 101-111 mmol/L Carbon Dioxide Level 26 21-32 mmol/L Blood Urea Nitrogen 28 H 7-18 mg/dL Creatinine 0.9 0.5-1.0 mg/dL Glomerular Filtration Rate Calc 71 >90 mL/min Random Glucose 265 H 70-105 mg/dL Total Calcium 9.1 8.5-10.1 mg/dL Phosphorus Level 3.7 2.5-4.9 mg/dL Magnesium Level 1.30 L 1.80-2.40 mg/dL Coagulation Labs: Test 03/01/25 11:31 Range/Units Prothrombin Time 12.2 H 9.6-11.6 SEC Prothromb Time International Ratio 1.17 H 0.85-1.15 Activated Partial Thromboplast Time 23.3 L 26.3-35.5 SEC DIAGNOSTICS / RADIOLOGY RESULTS: [ ] PLAN For now, going to continue current management for the patient. She will remain intubated and will be extubated per the CTS/CABG protocol. We will encourage IS therapy post extubation. Patient will continue on cardiac management per the Cardiology team/CTVS. We will repeat surveillance labs in morning. We will follow the recommendation of the CTS and we will intervene if necessary. We will continue to provide general supportive care, GI and DVT prophylaxis. Furt her orders per attending MD and hospital course. NEURO: Minimize central acting medications as possible. Fall Precautions. Well lighted room through the day and minimize interruptions through the night to prevent acute delirium. PULMONARY: Supplemental 02 as needed Titrate Fio2 to keep Spo2 > or = 90% DuoNebs and CPT as needed IS hourly while awake for pulmonary hygiene Out of bed to chair as tolerated VAP Bundle Vent/BIPAP Settings: [ ] CARDIOVASCULAR: Follow hemodynamics. Titrate vasopressor to keep MAP >65 or systolic blood pressure >95mmHg DIPS: Epinephrine Insulin LINES: [ ] GI & NUTRITION: Continue nutritional support Aspirations precautions Prokinetic agents and laxatives as needed KIDNEYS & ELECTROLYTES: Strict monitoring of intake and output Daily weights Avoid nephrotoxic agents Monitor electrolytes and replace as needed Goal urine output of 30mL/hr or 0.5mL/kg/hr Urine output: [ ] Fluid Balance: [ ] ENDOCRINE: Maintain blood glucose between 100-180 at all times. Insulin sliding scale for blood glucose management INFECTIOUS DISEASE: Trend temperature. Vaz-culture if febrile. Micro: [ ] Antibiotics: [ ] HEMATOLOGY & COAGULATION: Monitor H&H. Keep Hgb > 7 Transfuse 1 unit of PRBC for Hgb < 7 Transfuse 1 pack of platelets of platelets < 20, 000 Watch for any signs and symptoms of bleeding SKIN: Pressure ulcer prevention per facility protocol Rehab: PT/OT Prophylaxis: GI: [ ] DVT: [ ] Code Status: Full Resuscitation Disposition: ICU Other: I personally spent 40 minutes of critical care time in treatment of this patient. This includes patient management, time at bedside, time reviewing tests, labs, appropriate images and studies, documentation, and patient care coordination. This time excludes separately billable procedures. Patient was seen and case was discussed with rounding MD. Plan of care was discussed and agreed upon. TATE NUNEZ NP March 01, 2025 18:54
--- NOTE | 2025-03-01 19:07 | OP ---
DATE OF PROCEDURE: 03/01/2025 PREOPERATIVE DIAGNOSES: Coronary artery disease, status post mastectomy. POSTOPERATIVE DIAGNOSIS: Coronary artery disease, status post mastectomy. PROCEDURE PERFORMED: Off-pump CABG x 2, ESPINOSA to LAD, reverse saphenous vein graft to oblique marginal, left dominance. SURGEON: Gee Rubin MD. GAS BOOSTER ENGINEER: Rodríguez. ANESTHESIA: Blackman. INDICATIONS: This patient has a history of mastectomy with possible radiation to her chest and some inflammatory reaction on the underlying portion of the chest. I had the opportunity to review the films and examine the patient as well as review the medical record. I have discussed all the findings with the caring linen supply load builder. We both agree surgery was indicated and we have recommended. The patient understood the risks, indications, and the risks, benefits, as well as the associated morbidity and mortality of the procedure as it relates to her own comorbidities and wished to proceed with surgery. FINDINGS: At the time of surgery, the ESPINOSA was a good size vessel with good flow, with anastomosis of the intramyocardial LAD distal to the stent. The vessel was about 2.5 mm in this area. The oblique margin was dominant vessel that had a stent with in-stent obstruction and was bypassed. The bypass was performed distal to this obstruction. The right coronary system was nondominant and the vessels were quite small and was not bypassed. DESCRIPTION OF PROCEDURE IN DETAIL: With the patient in supine position after adequate induction of general endotracheal anesthesia, preoperative intravenous antibiotics, percutaneous arterial and venous lines, surgeon directed timeout utilizing 2 patient identifiers, followed by a mid sternotomy, simultaneous harvesting of the left internal mammary artery from anterior left chest wall and greater saphenous vein from the left lower extremity using endoscopic technique. The patient was systemically heparinized and the mammary artery was from the chest in preparation for bypass. Chest retractor was placed. Utilizing mechanical stabilization and 4-prong tourniquet for under vascular control, 3 distal anastomoses were performed in an end-to-side fashion with the ESPINOSA and LAD, reverse saphenous vein graft and oblique marginal 2. Partial occlusion clamp in the ascending aorta and one 4.8 mm puncture was performed, running suture of 5-0 Prolene to construct the proximal anastomosis. Grafts de-aired and myocardium revascularized. Protamine, hemostasis and closure. Two chest drains, stainless steel wires for sternum, open reduction and internal fixation utilizing 3 plates with an eighteen #14 gauge screws, #1 Vicryl and 3-0 Monocryl for closure. The patient was transferred to the ICU in stable condition. TID: [id number] RECEIPT: [id number]
[2025-03-01] MEDS: atorVAStatin 40 MG TABLET PO SCH (19:56)
[2025-03-01] MEDS: MYCOPHENOLATE MOFETIL 250 MG CAPSULE PO SCH (19:56)
[2025-03-01] MEDS: FAMOTIDINE 20MG VIAL IV SCH (19:56)
[2025-03-01] MEDS: doCUSate SODIUM 100 MG CAP PO SCH (19:56)
[2025-03-01] MEDS: LATANOPROST 2.5 ML DROPS OS SCH (20:42)
[2025-03-01] MEDS: traMADol HCL 50 MG TABLET PO PRN (20:43)
[2025-03-02] VITALS (89 sets, daily range): BP systolic 92–198; BP diastolic 35–76; PULSE 80–113; RESP 11–33; TEMP 97.8–98.9; O2SAT 96–100
[2025-03-02 00:22] LABS: MAGNESIUM 1.9 mg/dL (1.80-2.40); POTASSIUM 4.3 mmol/L (3.5-5.1)
[2025-03-02 04:09] LABS: HEMATOCRIT 28.9 % (36-48); MEAN CORPUSCULAR HEMOGLOBIN 29.1 pg (27.0-33.0); MEAN CORPUSCULAR HGB CONC 32.9 g/dL (32.0-36.0); MEAN CORPUSCULAR VOLUME 88.7 fL (79-99); RED BLOOD CELL COUNT(AUTO) 3.26 MIL/uL (4.00-5.50); RED CELL DISTRIBUTION WIDTH 14.3 % (11.0-15.5); WHITE BLOOD COUNT (AUTO) 13.9 K/uL (4.8-10.8)
[2025-03-02 04:24] LABS: INR 0.97 (0.85-1.15); PROTHROMBIN TIME 10.3 SEC (9.6-11.6)
[2025-03-02 04:26] LABS: PARTIAL THROMBOPLASTIN TIME 21.4 SEC (26.3-35.5)
[2025-03-02 04:41] LABS: CREATININE 1.3 mg/dL (0.5-1.0); MAGNESIUM 2.7 mg/dL (1.80-2.40); PHOSPHORUS 2.7 mg/dL (2.5-4.9); POTASSIUM 3.8 mmol/L (3.5-5.1)
[2025-03-02] MEDS: levoTHYROxine 88 MCG TABLET PO SCH (07:21)
[2025-03-02] MEDS: ASPIRIN 81 MG EC TAB PO SCH (08:10)
[2025-03-02] MEDS: furoSEMIDE 20MG VIAL IV SCH (08:10)
[2025-03-02] MEDS: acetaMINOPHEN 325 MG TAB PO PRN (08:18)
--- NOTE | 2025-03-02 09:55 | PN ---
[facility] CARDIOLOGY PROGRESS NOTE Date Patient Seen: March 02, 2025 Time of Visit: 09:43 Interval History: This is a 64-year-old female with past medical history of hypertension, dyslipidemia, hypothyroidism, breast cancer status post right mastectomy, type 2 diabetes mellitus, ESRD now status post history of kidney transplant, sleep apnea, vomiting with fenofibrate therapy, coronary artery disease with history of remote PTCA and stenting of the distal left circumflex with a 2.5 x 28 mm Promus drug-eluting stent 01/18/2014. She was evaluated as an outpatient for progressive worsening dyspnea on exertion and a Lexiscan Cardiolite stress test on 11/13/2024 demonstrated moderate inferolateral ischemia. A cardiac catheterization on 01/06/2025 demonstrating severe three-vessel CAD including 60 to 70% in-stent restenosis of the mid LAD, 60% in-stent restenosis of the first diagonal, 80% OM1 stenosis, 75% OM2 stenosis, 75% mid left circumflex stenosis and diffuse 90% mid RCA stenosis in a small, non dominant RCA. LVEF was greater than 70% preoperatively. She underwent an elective off pump CABG x 2, with ESPINOSA to the LAD and saphenous vein graft to the OM2 on 03/01/[address] Gee Rubin. Operative note reports that the RCA was nondominant and small vessels and the RCA was not bypassed. She is postop day 1. Currently up in the chair. She continues on low-dose epinephrine. No complicating arrhythmias overnight and thus far stable early postoperative course. Physical Examination: GENERAL: No acute distress. HEAD: Normal with no signs of head trauma. EYES: PERRLA, EOMI, conjunctiva and sclera normal. NECK: Supple without JVD. There is no tenderness, lymphadenopathy, or masses. No thyromegaly. Normal carotid upstrokes without bruits. LUNGS: Diminished breath sounds at the bases bilaterally with poor inspiratory effort. HEART: Normal rate and rhythm. Normal S1 and S2 without murmurs, gallop or rub. Median sternotomy is with dressing. Chest tubes in place to bedside drainage VASC: Peripheral pulses +2 bilaterally. EXT: No clubbing, cyanosis, there is trace of pedal edema bilaterally. NEURO: Awake, alert, and oriented x3. No focal neurological deficits noted. Laboratory: Hematology Labs: Test 03/02/25 03:52 Range/Units White Blood Count 13.9 H 4.8-10.8 K/uL Red Blood Count 3.26 L 4.00-5.50 MIL/uL Hemoglobin 9.5 L 12.0-16.0 g/dL Hematocrit 28.9 L 36-48 % Mean Corpuscular Volume 88.7 79-99 fL Mean Corpuscular Hemoglobin 29.1 27.0-33.0 pg Mean Corpuscular Hemoglobin Concent 32.9 32.0-36.0 g/dL Red Cell Distribution Width 14.3 11.0-15.5 % Platelet Count 193 130-400 K/uL Mean Platelet Volume 11.0 H 7.5-10.5 fL Nucleated Red Blood Cells 0.0 0.0-0.19 % Chemistry Labs: Test 03/02/25 09:05 03/02/25 03:52 Range/Units Whole Blood Glucose 145 H 70-110 MG/DL Sodium Level 152 H 136-145 mmol/L Potassium Level 3.8 3.5-5.1 mmol/L Chloride Level 115 H 101-111 mmol/L Carbon Dioxide Level 30 21-32 mmol/L Blood Urea Nitrogen 24 H 7-18 mg/dL Creatinine 1.3 H 0.5-1.0 mg/dL Glomerular Filtration Rate Calc 46 >90 mL/min Random Glucose 145 H 70-105 mg/dL Total Calcium 9.5 8.5-10.1 mg/dL Ionized Calcium 1.28 1.15-1.33 MMOL/L Phosphorus Level 2.7 2.5-4.9 mg/dL Magnesium Level 2.70 H 1.80-2.40 mg/dL Coagulation Labs: Test 03/02/25 03:52 Range/Units Prothrombin Time 10.3 9.6-11.6 SEC Prothromb Time International Ratio 0.97 0.85-1.15 Activated Partial Thromboplast Time 21.4 L 26.3-35.5 SEC Diagnostics / Radiology: Impression and Plan: Severe three-vessel coronary artery disease (60-70% InStent restenosis of the mid LAD, 60% InStent restenosis of the 1st diagonal, 80% OM1 stenosis, 75% OM2 stenosis, 75% mid left circumflex stenosis and diffuse 90% mid RCA stenosis in a small nondominant RCA) by cardiac catheterization 01/06/2025 Normal LV systolic function with an LVEF of greater than 70% by cardiac catheterization 01/06/2025: Status post off pump coronary artery bypass graft x2 with ESPINOSA to the LAD and saphenous vein graft to the OM2 on 03/01/[address] Gee Rubin. Operative note reports that the RCA was nondominant and small vessels and the RCA was not bypassed: -continue usual postop course -resume beta-cristiano therapy when off epinephrine -continue oral nitrates given that the RCA was diffusely diseased, small-vessel and was not bypassed Hypertension: -currently on epinephrine drip and we will resume antihypertensive regimen in the next 24-48 hours Dyslipidemia: -continue atorvastatin 40 mg p.o. q.h.s. Comorbidities: Hypothyroidism on supplements Breast cancer status post right mastectomy Type 2 diabetes mellitus History of end-stage renal disease now status post renal transplant Sleep apnea GERMAN MONTEMAYOR [facility] March 02, 2025 09:55
--- NOTE | 2025-03-02 10:39 | NUR ---
DC: SNF- any in network facility Pt lives alone in 1 bedroom mobile home at [facility]. Pt states she will need SNF at [place] during her recovery. Pt is open to any in network facility. Pt signed consent, Carmela FOLEY made aware. Pt has a cane, walker and shower chair at home. No in home care services. PCP is Jac Sandoval. CM to follow and assist as needed. t Yung Avelar [phone] sister Kaila Neumann [phone] Addendum: 03/02/25 at 1041 by DERIK OLMOS SS Amended: Links added.
--- NOTE | 2025-03-02 10:41 | PN ---
[facility] PROGRESS NOTE Date Patient Seen: March 02, 2025 Time of Visit: 10:40 Supervising Physician: Rober Horan MD Primary Care Physician: Dr. Aurelia Sandoval Outpatient Specialists: [ ] Inpatient Consults: [ ] PROBLEM LIST: Severe multivessel CAD s/p CABG x2 03/01/2025, by Dr. Rubin Hypertension. Dyslipidemia. Hypothyroidism. ESRD, previously on hemodialysis , nows/p kidney transplant. Hypokalemia. Hypomagnesemia. Reactive leukocytosis. T2DM History of breast cancer status post right mastectomy. INTERVAL HISTORY: Day #1 post CABG, She is working with IS but pulling small amount of 500. She is currently only on epi at 0.02 mcg/kg/min. BLood pressure stable. There has been no reported dysrhythmia. Chest tube drained 150ml over night. Currently on 4 L in NAD, saturating 99%. Urine output 903 ml in the last 24 hours. No BM today. continue merlin regimen. chest XR with . No acute pulmonary infiltrate is seen. chest tube in place. White count is trending down as expected. HH stable. CR slightly increased to 1.3 and GFR 46. we will avoid nephrotoxic medications. WE will continue to follow CV surgery protocol., REVIEW OF SYSTEMS: Sedated and intubated PHYSICAL EXAM: GENERAL: Mechanically vented HEENT: EOMI, Sclera non icteric, moist mucosa NECK: Supple, no JVD, trachea midline LUNGS: Clear breath sounds bilaterally. No wheezes HEART: Regular rate and rhythm. Normal S1 and S2, without murmurs ABD: Abdomen soft, nontender. Bowel sounds present EXT: No clubbing cyanosis or edema NEURO: Sedated Vital Signs (last 8hr) Date Time Temp Pulse Resp B/P (MAP) Pulse Ox O2 Delivery O2 Flow Rate FiO2 03/02/25 10:00 90 19 97/40 (59) 97 03/02/25 09:48 88 19 N/Cannula Low lpm 4.0 36 03/02/25 09:45 87 17 105/39 (61) 97 108/53 (71) 03/02/25 09:30 88 16 109/43 (65) 98 03/02/25 09:15 87 20 93/37 (55) 97 03/02/25 09:00 89 14 115/45 (68) 97 03/02/25 08:45 86 11 100/44 (62) 97 108/59 (75) 03/02/25 08:30 88 23 98/45 (62) 96 03/02/25 08:15 89 21 94/41 (58) 97 03/02/25 08:00 88 14 103/40 (61) 97 03/02/25 08:00 97 Nasal Cannula* 4 36 03/02/25 07:45 91 18 157/56 (89) 97 03/02/25 07:44 89 13 139/51 (80) 97 135/69 (91) 03/02/25 07:30 86 17 136/51 (79) 97 03/02/25 07:15 90 19 147/53 (84) 98 03/02/25 07:00 91 20 143/53 (83) 98 03/02/25 06:30 92 26 122/50 (74) 98 117/59 (78) 03/02/25 06:15 94 13 111/46 (67) 96 03/02/25 06:14 93 20 111/46 (67) 96 114/61 (78) 03/02/25 06:09 96 17 133/51 (78) 95 113/64 (80) 03/02/25 06:00 113 26 198/71 (113) 93 03/02/25 05:45 88 21 157/58 (91) 96 158/58 (91) 03/02/25 05:30 87 17 172/61 (98) 96 03/02/25 05:15 87 17 167/60 (95) 96 03/02/25 05:00 83 15 155/55 (88) 96 03/02/25 04:45 87 19 138/59 (85) 95 132/72 (92) 03/02/25 04:34 03/02/25 04:30 97.9 85 17 160/60 (93) 97 03/02/25 04:15 81 15 149/56 (87) 97 03/02/25 04:00 84 16 156/60 (92) 97 03/02/25 04:00 98 Aerosol Mask+ 10 40 03/02/25 03:45 84 17 153/56 (88) 96 134/70 (91) 03/02/25 03:33 97.9 03/02/25 03:30 84 16 155/58 (90) 96 03/02/25 03:15 85 18 154/59 (90) 97 03/02/25 03:00 83 17 144/55 (84) 97 03/02/25 02:45 84 16 158/60 (92) 97 132/72 (92) LABS: Hematology Labs: Test 03/02/25 03:52 Range/Units White Blood Count 13.9 H 4.8-10.8 K/uL Red Blood Count 3.26 L 4.00-5.50 MIL/uL Hemoglobin 9.5 L 12.0-16.0 g/dL Hematocrit 28.9 L 36-48 % Mean Corpuscular Volume 88.7 79-99 fL Mean Corpuscular Hemoglobin 29.1 27.0-33.0 pg Mean Corpuscular Hemoglobin Concent 32.9 32.0-36.0 g/dL Red Cell Distribution Width 14.3 11.0-15.5 % Platelet Count 193 130-400 K/uL Mean Platelet Volume 11.0 H 7.5-10.5 fL Nucleated Red Blood Cells 0.0 0.0-0.19 % Chemistry Labs: Test 03/02/25 09:05 03/02/25 03:52 Range/Units Whole Blood Glucose 145 H 70-110 MG/DL Sodium Level 152 H 136-145 mmol/L Potassium Level 3.8 3.5-5.1 mmol/L Chloride Level 115 H 101-111 mmol/L Carbon Dioxide Level 30 21-32 mmol/L Blood Urea Nitrogen 24 H 7-18 mg/dL Creatinine 1.3 H 0.5-1.0 mg/dL Glomerular Filtration Rate Calc 46 >90 mL/min Random Glucose 145 H 70-105 mg/dL Total Calcium 9.5 8.5-10.1 mg/dL Ionized Calcium 1.28 1.15-1.33 MMOL/L Phosphorus Level 2.7 2.5-4.9 mg/dL Magnesium Level 2.70 H 1.80-2.40 mg/dL Coagulation Labs: Test 03/02/25 03:52 Range/Units Prothrombin Time 10.3 9.6-11.6 SEC Prothromb Time International Ratio 0.97 0.85-1.15 Activated Partial Thromboplast Time 21.4 L 26.3-35.5 SEC DIAGNOSTICS / RADIOLOGY RESULTS: [ ] PLAN Follow CT surgeon recommendations Follow cardiology recommendations Multimodal pain management Monitoring H&H Monitor chest tube output Chest x-ray in the morning Transfuse if absolutely necessary to keep hemoglobin above 8 Maintain O2 sats greater than 92% Incentive spirometry q 1hr Glycemic control with goal of 80-180 Referral for cardiac rehabilitation Speech to eval once patient is extubated monitor electrolytes: K Goal of 4 Magnesium goal of 2 Replace accordingly NEURO: Minimize central acting medications as possible. Fall Precautions. Well lighted room through the day and minimize interruptions through the night to prevent acute delirium. PULMONARY: Supplemental 02 as needed Titrate Fio2 to keep Spo2 > or = 90% DuoNebs and CPT as needed IS hourly while awake for pulmonary hygiene Out of bed to chair as tolerated VAP Bundle Vent/BIPAP Settings: [ ] CARDIOVASCULAR: Follow hemodynamics. Titrate vasopressor to keep MAP >65 or systolic blood pressure >95mmHg DIPS: Epinephrine Insulin LINES: CVC arterial line FC chest tube GI & NUTRITION: Continue nutritional support Aspirations precautions Prokinetic agents and laxatives as needed KIDNEYS & ELECTROLYTES: Strict monitoring of intake and output Daily weights Avoid nephrotoxic agents Monitor electrolytes and replace as needed Goal urine output of 30mL/hr or 0.5mL/kg/hr Urine output: [ ] Fluid Balance: [ ] ENDOCRINE: Maintain blood glucose between 100-180 at all times. Insulin sliding scale for blood glucose management INFECTIOUS DISEASE: Trend temperature. Vaz-culture if febrile. Micro: [ ] Antibiotics: [ ] HEMATOLOGY & COAGULATION: Monitor H&H. Keep Hgb > 7 Transfuse 1 unit of PRBC for Hgb < 7 Transfuse 1 pack of platelets of platelets < 20, 000 Watch for any signs and symptoms of bleeding SKIN: Pressure ulcer prevention per facility protocol Rehab: PT/OT Prophylaxis: GI: Pepcid DVT: QUINTEN Cohen per CV surgery Code Status: Full Resuscitation Disposition: ICU Other: I personally spent 40 minutes of critical care time in treatment of this patient. This includes patient management, time at bedside, time reviewing tests, labs, appropriate images and studies, documentation, and patient care coordination. This time excludes separately billable procedures. Patient was seen and case was discussed with zheng TOSCANO. Plan of care was discussed and agreed upon. ATTESTATION BY PHYSICIAN I reviewed the documentation, medical decision making, and treatment plan as not ed by the mid-level provider above. I agree with the findings and plan of care. Rober Horan MD, NELLY J ARNP March 02, 2025 10:41
--- NOTE | 2025-03-02 12:46 | HMCIMG ---
CHEST 1VW HISTORY: Post CABG COMPARISON: 03/01/2025 FINDINGS: A frontal projection of the chest was obtained. No acute pulmonary infiltrates is seen. Poststernotomy changes are seen. The heart is enlarged. Degenerative changes of the thoracolumbar spine are present. All the lines and tubes are again seen in place. Prominent interstitial markings are seen. No evidence of aortic calcification is seen. IMPRESSION: 1. No acute pulmonary infiltrate is seen.
--- NOTE | 2025-03-02 13:25 | NUR ---
[facility] ICU Skin Assessment: Patient assessed by wound healing team. Patient s/p CABG, up in chair, per primary nurse, patient with no wounds or skin breakdown noted. Assessment and recommendations provided to primary nurse. Education provided. Addendum: 03/03/25 at 1346 by NATAN COLE RN RN/ Amended: Links added.
[2025-03-03] VITALS (34 sets, daily range): BP systolic 98–158; BP diastolic 42–75; PULSE 75–89; RESP 13–25; TEMP 97–98.8; O2SAT 96–100
[2025-03-03 03:35] LABS: ABG BASE EXCESS 0.9 mmol/L (-2.0-3.0); ABG HCO3 25.9 mmol/L (21.0-28.0); ABG PCO2 44 mmHg (32-45); ABG PH 7.393 (7.350-7.450); CARBON MONOXIDE 0.2 % (0.5-1.5); PO2, ARTERIAL BG 77.8 mmHg (83.0-108.0); VENT MODE, BG NC,32 (ROOM AIR)
[2025-03-03 04:20] LABS: CREATININE 1.1 mg/dL (0.5-1.0); MAGNESIUM 2.1 mg/dL (1.80-2.40); PHOSPHORUS 3.4 mg/dL (2.5-4.9)
[2025-03-03 04:53] LABS: HEMATOCRIT 23.8 % (36-48); MEAN CORPUSCULAR HEMOGLOBIN 30.1 pg (27.0-33.0); MEAN CORPUSCULAR HGB CONC 32.8 g/dL (32.0-36.0); MEAN CORPUSCULAR VOLUME 91.9 fL (79-99); RED BLOOD CELL COUNT(AUTO) 2.59 MIL/uL (4.00-5.50); RED CELL DISTRIBUTION WIDTH 14.5 % (11.0-15.5); WHITE BLOOD COUNT (AUTO) 9.4 K/uL (4.8-10.8)
[2025-03-03 08:09] LABS: HEMATOCRIT 24.9 % (36-48); MEAN CORPUSCULAR HEMOGLOBIN 29.8 pg (27.0-33.0); MEAN CORPUSCULAR HGB CONC 32.5 g/dL (32.0-36.0); MEAN CORPUSCULAR VOLUME 91.5 fL (79-99); RED BLOOD CELL COUNT(AUTO) 2.72 MIL/uL (4.00-5.50); RED CELL DISTRIBUTION WIDTH 14.6 % (11.0-15.5); WHITE BLOOD COUNT (AUTO) 11.2 K/uL (4.8-10.8)
[2025-03-03] MEDS: furoSEMIDE 20 MG TABLET PO SCH (08:28)
[2025-03-03] MEDS: metoPROLOL tartRATE 25 MG TAB PO SCH (08:28)
--- NOTE | 2025-03-03 08:46 | PN ---
[facility] CARDIOLOGY PROGRESS NOTE Cardiology progress note dictated for Danie Cid MD Date Patient Seen: March 03, 2025 Interval History: This is a 64-year-old female with past medical history of hypertension, dyslipidemia, hypothyroidism, breast cancer status post right mastectomy, type 2 diabetes mellitus, ESRD now status post history of kidney transplant, sleep apnea, vomiting with fenofibrate therapy, coronary artery disease with history of remote PTCA and stenting of the distal left circumflex with a 2.5 x 28 mm Promus drug-eluting stent 01/18/2014. She was evaluated as an outpatient for progressive worsening dyspnea on exertion and a Lexiscan Cardiolite stress test on 11/13/2024 demonstrated moderate inferolateral ischemia. A cardiac catheterization on 01/06/2025 demonstrating severe three-vessel CAD including 60 to 70% in-stent restenosis of the mid LAD, 60% in-stent restenosis of the first diagonal, 80% OM1 stenosis, 75% OM2 stenosis, 75% mid left circumflex stenosis and diffuse 90% mid RCA stenosis in a small, non dominant RCA. LVEF was greater than 70% preoperatively. She underwent an elective off pump CABG x 2, with ESPINOSA to the LAD and saphenous vein graft to the OM2 on 03/01/[address] Gee Rubin. Operative note reports that the RCA was nondominant and small vessels and the RCA was not bypassed. She is postop day 2. Currently up in the chair. She has been weaned off of low-dose epinephrine and has received her 1st dose metoprolol tartrate 12.5 mg b.i.d.. No complicating arrhythmias overnight and thus far stable early postoperative course. Physical Examination: GENERAL: No acute distress. On 4 L of O2 via NC. HEAD: Normal with no signs of head trauma. EYES: PERRLA, EOMI, conjunctiva and sclera normal. NECK: Supple without JVD. Right IJ central line. LUNGS: Diminished breath sounds at the bases bilaterally with poor inspiratory effort. HEART: Normal rate and rhythm. Normal S1 and S2 without murmurs, gallop or rub. Median sternotomy is with dressing. Mediastinal chest tube with serosanguineous output. VASC: Peripheral pulses +2 bilaterally. BUE with 1+ edema. Left radial arterial line in place. EXT: No clubbing, cyanosis, there is trace of pedal edema bilaterally. LINES: Carey catheter in place draining yellow urine. NEURO: Awake, alert, and oriented x3. No focal neurological deficits noted. Laboratory: Hematology Labs: Test 03/03/25 07:58 Range/Units White Blood Count 11.2 H 4.8-10.8 K/uL Red Blood Count 2.72 L 4.00-5.50 MIL/uL Hemoglobin 8.1 L 12.0-16.0 g/dL Hematocrit 24.9 L 36-48 % Mean Corpuscular Volume 91.5 79-99 fL Mean Corpuscular Hemoglobin 29.8 27.0-33.0 pg Mean Corpuscular Hemoglobin Concent 32.5 32.0-36.0 g/dL Red Cell Distribution Width 14.6 11.0-15.5 % Platelet Count 110 L 130-400 K/uL Mean Platelet Volume 10.8 H 7.5-10.5 fL Nucleated Red Blood Cells 0.0 0.0-0.19 % Chemistry Labs: Test 03/03/25 06:05 03/03/25 03:54 03/02/25 03:52 Range/Units Whole Blood Glucose 100 70-110 MG/DL Sodium Level 144 136-145 mmol/L Potassium Level 4.0 3.5-5.1 mmol/L Chloride Level 109 101-111 mmol/L Carbon Dioxide Level 28 21-32 mmol/L Blood Urea Nitrogen 25 H 7-18 mg/dL Creatinine 1.1 H 0.5-1.0 mg/dL Glomerular Filtration Rate Calc 56 >90 mL/min Random Glucose 102 70-105 mg/dL Total Calcium 9.2 8.5-10.1 mg/dL Phosphorus Level 3.4 2.5-4.9 mg/dL Magnesium Level 2.10 1.80-2.40 mg/dL Ionized Calcium 1.28 1.15-1.33 MMOL/L Coagulation Labs: Test 03/02/25 03:52 Range/Units Prothrombin Time 10.3 9.6-11.6 SEC Prothromb Time International Ratio 0.97 0.85-1.15 Activated Partial Thromboplast Time 21.4 L 26.3-35.5 SEC Diagnostics / Radiology: Impression and Plan: Severe three-vessel coronary artery disease (60-70% InStent restenosis of the mid LAD, 60% InStent restenosis of the 1st diagonal, 80% OM1 stenosis, 75% OM2 stenosis, 75% mid left circumflex stenosis and diffuse 90% mid RCA stenosis in a small nondominant RCA) by cardiac catheterization 01/06/2025 Normal LV systolic function with an LVEF of greater than 70% by cardiac catheterization 01/06/2025: Status post off pump coronary artery bypass graft x2 with ESPINOSA to the LAD and saphenous vein graft to the OM2 on 03/01/[address] Gee Rubin. Operative note reports that the RCA was nondominant and small vessels and the RCA was not bypassed: -continue usual postop course -continue oral nitrates given that the RCA was diffusely diseased, small-vessel and was not bypassed -continue aspirin 81 mg daily, atorvastatin 40 mg nightly, and metoprolol tartrate 12.5 mg b.i.d. Hypertension: -we will resume antihypertensive regimen in the next 24-48 hours Dyslipidemia: -continue atorvastatin 40 mg p.o. q.h.s. Comorbidities: Hypothyroidism on supplements Breast cancer status post right mastectomy Type 2 diabetes mellitus History of end-stage renal disease now status post renal transplant Sleep apnea PHYSICIAN ATTESTATION OF PHYSICIAN CRYSTAL FINISHER DOCUMENTATION: I attest that I was physically present for the valencia portions of the service and evaluated the patient with the Physician [employer], and I reviewed and discussed the case with the Physician [employer] and made modifications to the Physician [employer]'s findings and plans of care as documented above JUSTINE MANZO March 03, 2025 08:46 DANEI CID MD March 03, 2025 15:20
--- NOTE | 2025-03-03 10:41 | HMCIMG ---
CHEST 1VW HISTORY: Post CABG COMPARISON: 03/02/2025 FINDINGS: A frontal projection of the chest was obtained. Prominent interstitial markings are seen with possible superimposed infiltrates. Poststernotomy changes are seen. The heart is enlarged. Degenerative changes of the thoracolumbar spine are present. All the lines and tubes are again seen in place. No evidence of aortic calcification is seen. IMPRESSION: 1. Prominent interstitial markings are seen with possible superimposed infiltrates.
--- NOTE | 2025-03-03 11:02 | PN ---
[facility] PROGRESS NOTE Date Patient Seen: March 03, 2025 Time of Visit: 11:01 Supervising Physician: Rober Horan MD Primary Care Physician: Dr. Aurelia Sandoval Outpatient Specialists: [ ] Inpatient Consults: [ ] PROBLEM LIST: Severe multivessel CAD s/p CABG x2 03/01/2025, by Dr. Schaffer Hypertension. Dyslipidemia. Hypothyroidism. ESRD, previously on hemodialysis , now s/p kidney transplant. Hypokalemia. Hypomagnesemia. Reactive leukocytosis. T2DM History of breast cancer status post right mastectomy. INTERVAL HISTORY: Day #2. No major overnight events. She is off pressors. Hemodynamically stable and afebrile. T-max of 98.8 and T low of 97 in the last 24 hours. Patient denies any chest pain palpitations or shortness for breath. She reports feeling better. Occasional tenderness to chest tube site. Urine output 1.0 L, chest tube drained 290 mL with a balance of-313 mL in the last 24 hours. White count 9.4 H&H 7.8/23.8 platelet count of 95 K. creatinine improving 1.1 from 1.3 yesterday. Glucose 102 mg/dL and magnesium is 2.10. Chest x-ray prominent interstitial markings seen with possible superimposed infiltrates. REVIEW OF SYSTEMS: General: No malaise or fever. Neurological: No fainting episodes or seizures. HEENT: No nasal congestion or nasal secretion. Respiratory: No cough, shortness of breath, or wheezing, per patient on tenderness to chest tube site. Cardiac: No chest pain or palpitations. Gastrointestinal: No vomiting or diarrhea. Genitourinary: No dysuria hematuria. Skin: No rashes or lesions. Hematological: No bruises or bleeding. Musculoskeletal: No joint pains or arthralgias. Psychiatric: No depression or panic attacks. PHYSICAL EXAM: GENERAL: Awake alert and oriented x3. Recovering post CABG. HEENT: EOMI, Sclera non icteric, moist mucosa NECK: Supple, no JVD, trachea midline LUNGS: Clear breath sounds bilaterally. No wheezes HEART: Regular rate and rhythm. Normal S1 and S2, without murmurs ABD: Abdomen soft, nontender. Bowel sounds present EXT: No clubbing cyanosis or edema NEURO: GCS of 15 on neurological deficits no focal weakness or dizziness. Vital Signs (last 8hr) Date Time Temp Pulse Resp B/P (MAP) Pulse Ox O2 Delivery O2 Flow Rate FiO2 03/03/25 10:30 76 23 127/49 (75) 96 03/03/25 10:15 84 24 104/51 (68) 96 03/03/25 10:00 79 16 130/51 (77) 92 118/55 (76) 03/03/25 09:44 79 19 142/57 (85) 95 119/63 (81) 03/03/25 09:30 78 14 157/58 (91) 99 03/03/25 09:15 78 15 149/58 (88) 99 03/03/25 09:00 81 13 158/59 (92) 99 03/03/25 08:45 82 14 150/54 (86) 99 125/64 (84) 03/03/25 08:30 89 14 142/54 (83) 98 03/03/25 08:15 89 25 98/46 (63) 96 03/03/25 08:00 96 Nasal Cannula* 4 36 03/03/25 08:00 86 21 131/50 (77) 97 03/03/25 07:53 98.4 4.0 03/03/25 07:45 80 17 135/54 (81) 95 119/52 (74) 03/03/25 07:30 86 15 154/57 (89) 98 03/03/25 07:15 78 19 138/51 (80) 98 03/03/25 07:00 88 19 149/56 (87) 98 03/03/25 06:36 82 19 N/Cannula Low lpm 3.0 32 03/03/25 05:44 82 21 135/51 (79) 96 36 112/63 (79) 03/03/25 04:44 88 14 152/47 (82) 97 36 133/65 (87) 03/03/25 04:00 97 Nasal Cannula* 4 36 03/03/25 04:00 97.0 03/03/25 03:44 88 15 140/45 (76) 98 36 120/66 (84) LABS: Hematology Labs: Test 03/03/25 07:58 Range/Units White Blood Count 11.2 H 4.8-10.8 K/uL Red Blood Count 2.72 L 4.00-5.50 MIL/uL Hemoglobin 8.1 L 12.0-16.0 g/dL Hematocrit 24.9 L 36-48 % Mean Corpuscular Volume 91.5 79-99 fL Mean Corpuscular Hemoglobin 29.8 27.0-33.0 pg Mean Corpuscular Hemoglobin Concent 32.5 32.0-36.0 g/dL Red Cell Distribution Width 14.6 11.0-15.5 % Platelet Count 110 L 130-400 K/uL Mean Platelet Volume 10.8 H 7.5-10.5 fL Nucleated Red Blood Cells 0.0 0.0-0.19 % Chemistry Labs: Test 03/03/25 06:05 03/03/25 03:54 03/02/25 03:52 Range/Units Whole Blood Glucose 100 70-110 MG/DL Sodium Level 144 136-145 mmol/L Potassium Level 4.0 3.5-5.1 mmol/L Chloride Level 109 101-111 mmol/L Carbon Dioxide Level 28 21-32 mmol/L Blood Urea Nitrogen 25 H 7-18 mg/dL Creatinine 1.1 H 0.5-1.0 mg/dL Glomerular Filtration Rate Calc 56 >90 mL/min Random Glucose 102 70-105 mg/dL Total Calcium 9.2 8.5-10.1 mg/dL Phosphorus Level 3.4 2.5-4.9 mg/dL Magnesium Level 2.10 1.80-2.40 mg/dL Ionized Calcium 1.28 1.15-1.33 MMOL/L Coagulation Labs: Test 03/02/25 03:52 Range/Units Prothrombin Time 10.3 9.6-11.6 SEC Prothromb Time International Ratio 0.97 0.85-1.15 Activated Partial Thromboplast Time 21.4 L 26.3-35.5 SEC DIAGNOSTICS / RADIOLOGY RESULTS: [Signed PATIENT: HARI GTZ MR#: [id number] : 1960 SEX: F AGE: 64 LOCATION: [facility] ORDER 99 STATUS: ADM IN REPORT#: [id number] SERVICE 0400 REASON: s/p CABG ORDERING PHYSICIAN: SUE SCHAFFER MD PROCEDURE: CXR1VW - CHEST 1VW CHEST 1VW HISTORY: Post CABG COMPARISON: 03/02/2025 FINDINGS: A frontal projection of the chest was obtained. Prominent interstitial markings are seen with possible superimposed infiltrates. Poststernotomy changes are seen. The heart is enlarged. Degenerative changes of the thoracolumbar spine are present. All the lines and tubes are again seen in place. No evidence of aortic calcification is seen. IMPRESSION: 1. Prominent interstitial markings are seen with possible superimposed infiltrates. DICTATED BY: MARYANNE RODRÍGUEZ MD DATE: 03/03/25 1039 ELECTRONICALLY SIGNED BY: MARYANNE RODRÍGUEZ MD DATE: 03/03/25 1041 ] PLAN Follow CT surgeon recommendations Follow cardiology recommendations Multimodal pain management Monitoring H&H Monitor chest tube output Chest x-ray in the morning Transfuse if absolutely necessary to keep hemoglobin above 8 Maintain O2 sats greater than 92% Incentive spirometry q 1hr Glycemic control with goal of 80-180 Referral for cardiac rehabilitation Speech to eval once patient is extubated monitor electrolytes: K Goal of 4 Magnesium goal of 2 Replace accordingly May downgrade to PCCU if okay with CV surgery. NEURO: Minimize central acting medications as possible. Fall Precautions. Well lighted room through the day and minimize interruptions through the night to prevent acute delirium. PULMONARY: Supplemental 02 as needed Titrate Fio2 to keep Spo2 > or = 90% DuoNebs and CPT as needed IS hourly while awake for pulmonary hygiene Out of bed to chair as tolerated VAP Bundle Vent/BIPAP Settings: [ ] CARDIOVASCULAR: Follow hemodynamics. Titrate vasopressor to keep MAP >65 or systolic blood pressure >95mmHg DIPS: None LINES: CVC DC arterial line DC FC chest tube GI & NUTRITION: Continue nutritional support Aspirations precautions Prokinetic agents and laxatives as needed KIDNEYS & ELECTROLYTES: Strict monitoring of intake and output Daily weights Avoid nephrotoxic agents Monitor electrolytes and replace as needed Goal urine output of 30mL/hr or 0.5mL/kg/hr Urine output: [ ] Fluid Balance: [ ] ENDOCRINE: Maintain blood glucose between 100-180 at all times. Insulin sliding scale for blood glucose management INFECTIOUS DISEASE: Trend temperature. Vaz-culture if febrile. Micro: [ ] Antibiotics: [ ] HEMATOLOGY & COAGULATION: Monitor H&H. Keep Hgb > 7 Transfuse 1 unit of PRBC for Hgb < 7 Transfuse 1 pack of platelets of platelets < 20, 000 Watch for any signs and symptoms of bleeding SKIN: Pressure ulcer prevention per facility protocol Rehab: PT/OT Prophylaxis: GI: Pepcid DVT: QUINTEN Cohen per CV surgery Code Status: Full Resuscitation Disposition: TBD Other: I personally spent 40 minutes of critical care time in treatment of this patient. This includes patient management, time at bedside, time reviewing tests, labs, appropriate images and studies, documentation, and patient care coordination. This time excludes separately billable procedures. Patient was seen and case was discussed with zheng TOSCANO. Plan of care was discussed and agreed upon. ATTESTATION BY PHYSICIAN I reviewed the documentation, medical decision making, and treatment plan as noted by the mid-level provider above. I agree with the findings and plan of care. Rober Horan MD, NELLY J ARNP March 03, 2025 11:01
[2025-03-03] MEDS: INSULIN humuLIN R 100 UNIT/ML 3ML SQ SCH (11:07)
--- NOTE | 2025-03-03 21:01 | PN ---
HISTORY OF PRESENT ILLNESS: A 64-year-old status post CABG on 03/01, coursing postoperative day #2. OBJECTIVE: GENERAL: Awake, alert, in no acute distress. VITAL SIGNS: Stable as recorded in the medical record. CHEST: Sternum stable. Incision sealed. LUNGS: Clear. EXTREMITIES: Warm and well perfused. No evidence of DVT, hematoma, or infection. ASSESSMENT: Status post CABG. PROBLEMS: * Coronary artery disease. Aspirin 81 mg, metoprolol 25 mg twice a day. * DVT prophylaxis. SCDs while in bed. Lovenox 20 mg once a day. * Dyslipidemia. Lipitor 40 mg once a day. * Fluid overload. Lasix 20 mg twice a day. PLAN: OT, PT, cardiac rehabilitation, discharge planning. TID: [id number] RECEIPT: [id number]
[2025-03-03] MEDS: FAMOTIDINE 20MG VIAL IV ONE (21:21)
[2025-03-03] MEDS: FAMOTIDINE 20MG VIAL IV SCH (21:21)
[2025-03-04] VITALS (10 sets, daily range): BP systolic 91–133; BP diastolic 43–63; PULSE 68–96; RESP 16–18; TEMP 97.7–98.6; O2SAT 92–97
[2025-03-04 04:23] LABS: HEMATOCRIT 23.5 % (36-48); MEAN CORPUSCULAR HEMOGLOBIN 28.9 pg (27.0-33.0); MEAN CORPUSCULAR HGB CONC 31.5 g/dL (32.0-36.0); MEAN CORPUSCULAR VOLUME 91.8 fL (79-99); RED BLOOD CELL COUNT(AUTO) 2.56 MIL/uL (4.00-5.50); RED CELL DISTRIBUTION WIDTH 13.5 % (11.0-15.5); WHITE BLOOD COUNT (AUTO) 7.8 K/uL (4.8-10.8)
[2025-03-04] MEDS: ENOXAPARIN SODIUM 30 MG/0.3 ML SQ SCH (09:08)
--- NOTE | 2025-03-04 09:21 | PN ---
[facility] PROGRESS NOTE Date Patient Seen: March 04, 2025 Time of Visit: 09:15 Interval History: This is a 64-year-old female with past medical history of hypertension, dyslipidemia, hypothyroidism, breast cancer status post right mastectomy, type 2 diabetes mellitus, ESRD now status post history of kidney transplant, sleep apnea, vomiting with fenofibrate therapy, coronary artery disease with history of remote PTCA and stenting of the distal left circumflex with a 2.5 x 28 mm Promus drug-eluting stent 01/18/2014. She was evaluated as an outpatient for progressive worsening dyspnea on exertion and a Lexiscan Cardiolite stress test on 11/13/2024 demonstrated moderate inferolateral ischemia. A cardiac catheterization on 01/06/2025 demonstrating severe three-vessel CAD including 60 to 70% in-stent restenosis of the mid LAD, 60% in-stent restenosis of the first diagonal, 80% OM1 stenosis, 75% OM2 stenosis, 75% mid left circumflex stenosis and diffuse 90% mid RCA stenosis in a small, non dominant RCA. LVEF was greater than 70% preoperatively. She underwent an elective off pump CABG x 2, with ESPINOSA to the LAD and saphenous vein graft to the OM2 on 03/01/[address] Gee Rubin. Operative note reports that the RCA was nondominant and small vessels and the RCA was not bypassed. She has had a stable postoperative course and has been transferred to telemetry unit. She offers no complaints of dyspnea, no chest pain and will undergo physical therapy for progressive mobilization. There have been no complicating arrhythmias and her telemetry has demonstrated a normal sinus rhythm with a heart rate in the 80 beat per minute range. Physical Examination: GENERAL: No acute distress. On 4 L of O2 via NC. HEAD: Normal with no signs of head trauma. EYES: PERRLA, EOMI, conjunctiva and sclera normal. NECK: Supple without JVD. Carotids normal without bruit LUNGS: Diminished breath sounds at the bases bilaterally with poor inspiratory effort. HEART: Normal rate and rhythm. Normal S1 and S2 without murmurs, gallop or rub. Median sternotomy is with dressing. VASC: Peripheral pulses +2 bilaterally. EXT: No clubbing, cyanosis, there is trace of pedal edema bilaterally. NEURO: Awake, alert, and oriented x3. No focal neurological deficits noted. Laboratory: Hematology Labs: Test 03/04/25 04:04 Range/Units White Blood Count 7.8 # 4.8-10.8 K/uL Red Blood Count 2.56 L 4.00-5.50 MIL/uL Hemoglobin 7.4 L 12.0-16.0 g/dL Hematocrit 23.5 L 36-48 % Mean Corpuscular Volume 91.8 79-99 fL Mean Corpuscular Hemoglobin 28.9 27.0-33.0 pg Mean Corpuscular Hemoglobin Concent 31.5 L 32.0-36.0 g/dL Red Cell Distribution Width 13.5 11.0-15.5 % Platelet Count 95 L 130-400 K/uL Mean Platelet Volume 11.1 H 7.5-10.5 fL Nucleated Red Blood Cells 0.0 0.0-0.19 % Chemistry Labs: Test 03/04/25 05:39 03/04/25 04:04 03/03/25 03:54 Range/Units Whole Blood Glucose 156 H 70-110 MG/DL Sodium Level 140 136-145 mmol/L Potassium Level 4.0 3.5-5.1 mmol/L Chloride Level 105 101-111 mmol/L Carbon Dioxide Level 28 21-32 mmol/L Blood Urea Nitrogen 25 H 7-18 mg/dL Creatinine 1.0 0.5-1.0 mg/dL Glomerular Filtration Rate Calc 63 >90 mL/min Random Glucose 166 H 70-105 mg/dL Total Calcium 9.2 8.5-10.1 mg/dL Phosphorus Level 3.4 2.5-4.9 mg/dL Magnesium Level 2.10 1.80-2.40 mg/dL Diagnostics / Radiology: Chest x-ray 03/04/2025 demonstrates cardiomegaly and left effusion Impression and Plan: Severe three-vessel coronary artery disease (60-70% InStent restenosis of the mid LAD, 60% InStent restenosis of the 1st diagonal, 80% OM1 stenosis, 75% OM2 stenosis, 75% mid left circumflex stenosis and diffuse 90% mid RCA stenosis in a small nondominant RCA) by cardiac catheterization 01/06/2025 Normal LV systolic function with an LVEF of greater than 70% by cardiac catheterization 01/06/2025: Status post off pump coronary artery bypass graft x2 with ESPINOSA to the LAD and saphenous vein graft to the OM2 on 03/01/[address] Gee Rubin. Operative note reports that the RCA was nondominant and small vessels and the RCA was not bypassed: -continue usual postop course -resume oral nitrates with isosorbide mononitrate ER 30 mg p.o. daily given that the RCA was diffusely diseased, small-vessel and was not bypassed -continue aspirin 81 mg daily, atorvastatin 40 mg nightly, and metoprolol tartrate 12.5 mg b.i.d. Hypertension: -stable and continue oral nitrates and beta-cristiano therapy Dyslipidemia: -continue atorvastatin 40 mg p.o. q.h.s. Comorbidities: Hypothyroidism on supplements Breast cancer status post right mastectomy Type 2 diabetes mellitus History of end-stage renal disease now status post renal transplant Sleep apnea GERMAN MONTEMAYOR COOKER SULFATE March 04, 2025 09:21
--- NOTE | 2025-03-04 10:04 | PN ---
[facility] PROGRESS NOTE Date Patient Seen: March 04, 2025 Time of Visit: 10:04 Supervising Physician: Rober Horan MD Primary Care Physician: Dr. Aurelia Sandoval Outpatient Specialists: [ ] Inpatient Consults: [ ] PROBLEM LIST: Severe multivessel CAD s/p CABG x2 03/01/2025, by Dr. Schaffer Hypertension. Dyslipidemia. Hypothyroidism. ESRD, previously on hemodialysis , now s/p kidney transplant. Hypokalemia. Hypomagnesemia. Reactive leukocytosis. T2DM History of breast cancer status post right mastectomy. INTERVAL HISTORY: Day #3. NO major overnight events. She is working on her IS currently and pulling up to 1 L. She has no complains, pt reports feeling improvement and decreasing pain. She is currently in NAD on 3L via NC. Chest XR with some vascular congestion and swelling noted to fadumo hands. Urine output has not been great. RN to administer extra dose of Lasix 20mg ivp. HH has decreased to 7.4/23.5 will have it repeated if still below 8 transfuse 1 units of PRBC if ok with CV surgery. REVIEW OF SYSTEMS: General: No malaise or fever. Neurological: No fainting episodes or seizures. HEENT: No nasal congestion or nasal secretion. Respiratory: No cough, shortness of breath, or wheezing, per patient on tenderness to chest tube site. Cardiac: No chest pain or palpitations. yes to feelin hand and feet swelling. Gastrointestinal: No vomiting or diarrhea. Genitourinary: No dysuria hematuria. Skin: No rashes or lesions. Hematological: No bruises or bleeding. Musculoskeletal: No joint pains or arthralgias. Psychiatric: No depression or panic attacks. PHYSICAL EXAM: GENERAL: Awake alert and oriented x3. Recovering post CABG. HEENT: EOMI, Sclera non icteric, moist mucosa NECK: Supple, no JVD, trachea midline LUNGS: Clear breath sounds bilaterally. No wheezes HEART: Regular rate and rhythm. Normal S1 and S2, without murmurs ABD: Abdomen soft, nontender. Bowel sounds present EXT: No clubbing cyanosis or edema NEURO: GCS of 15 on neurological deficits no focal weakness or dizziness. Vital Signs (last 8hr) Date Time Temp Pulse Resp B/P (MAP) Pulse Ox O2 Delivery O2 Flow Rate FiO2 03/04/25 07:42 97.7 75 18 116/58 96 Nasal Cannula 3.0 5/22/25 06:58 74 18 N/Cannula Low lpm 3.0 32 03/04/25 03:13 98.1 77 18 130/63 99 Room Air LABS: Hematology Labs: Test 03/04/25 04:04 Range/Units White Blood Count 7.8 # 4.8-10.8 K/uL Red Blood Count 2.56 L 4.00-5.50 MIL/uL Hemoglobin 7.4 L 12.0-16.0 g/dL Hematocrit 23.5 L 36-48 % Mean Corpuscular Volume 91.8 79-99 fL Mean Corpuscular Hemoglobin 28.9 27.0-33.0 pg Mean Corpuscular Hemoglobin Concent 31.5 L 32.0-36.0 g/dL Red Cell Distribution Width 13.5 11.0-15.5 % Platelet Count 95 L 130-400 K/uL Mean Platelet Volume 11.1 H 7.5-10.5 fL Nucleated Red Blood Cells 0.0 0.0-0.19 % Chemistry Labs: Test 03/04/25 05:39 03/04/25 04:04 03/03/25 03:54 Range/Units Whole Blood Glucose 156 H 70-110 MG/DL Sodium Level 140 136-145 mmol/L Potassium Level 4.0 3.5-5.1 mmol/L Chloride Level 105 101-111 mmol/L Carbon Dioxide Level 28 21-32 mmol/L Blood Urea Nitrogen 25 H 7-18 mg/dL Creatinine 1.0 0.5-1.0 mg/dL Glomerular Filtration Rate Calc 63 >90 mL/min Random Glucose 166 H 70-105 mg/dL Total Calcium 9.2 8.5-10.1 mg/dL Phosphorus Level 3.4 2.5-4.9 mg/dL Magnesium Level 2.10 1.80-2.40 mg/dL DIAGNOSTICS / RADIOLOGY RESULTS: [IMAGING REPORT Signed PATIENT: HARI GTZ MR#: [id number] : 1960 SEX: F AGE: 64 LOCATION: [facility] ORDER 2300 STATUS: ADM IN REPORT#: [id number] SERVICE 0400 REASON: s/p CABG ORDERING PHYSICIAN: SUE SCHAFFER MD PROCEDURE: CXR1VW - CHEST 1VW CHEST 1VW HISTORY: Post CABG COMPARISON: 03/03/2025 FINDINGS: A frontal projection of the chest was obtained. Mild bilateral pulmonary infiltrates are seen may be related to mild pulmonary vascular congestion with possible superimposed pneumonitis. Poststernotomy changes are seen. The heart is enlarged. Degenerative changes of the thoracolumbar spine are present. No evidence of aortic calcification is seen. IMPRESSION: 1. Mild bilateral pulmonary infiltrates are seen may be related to mild pulmonary vascular congestion with possible superimposed pneumonitis. DICTATED BY: MARYANNE RODRÍGUEZ MD DATE: 03/04/25 1011 ELECTRONICALLY SIGNED BY: MARYANNE RODRÍGUEZ MD DATE: 03/04/25 1014 ] PLAN continue working with IS give extra dose of lasix 20mg ivp now transfuse 1 unit of PRBC if ok with CV surgery wean o2 as possible monitor electrolytes and replace accordingly monitor kidney function closely and avoid nephrotoxic medications given that she has a single kidney. NEURO: Minimize central acting medications as possible. Maintain fall precautions, adequate lighting during the day PULMONARY: Supplemental 02 as needed. Maintain aspiration precautions at all times CARDIOVASCULAR: Follow hemodynamics. Vital signs per facility protocol GI & NUTRITION: Continue with nutritional support. Continue stool softeners and laxatives as needed. KIDNEYS & ELECTROLYTES: Strict monitoring of intake, output and overall fluid balance. Avoid nephrotoxic medications to the extent possible. Medications to be dosed according to renal function. Monitor electrolytes and replace as needed ENDOCRINE: Maintain blood glucose between 100-180 at all times. Hypoglycemia protocol in place INFECTIOUS DISEASE: Trend temperature, WBC and procalcitonin level Follow cultures, deescalate antibiotics as soon as possible. Panculture if new onset fever ONCOLOGY/HEMATOLOGY/COAGULATION: Monitor for s/s of bleeding Monitor hemoglobin, coagulation studies as needed SKIN: Pressure ulcer prevention per facility protocol Specialty mattress ORTHO/REHAB: Continue PT/OT Prophylaxis: Continue GI and DVT prophylaxis Code Status: Full Resuscitation Disposition: TBD Other: Total patient care time exceeds 35 minutes excluding all procedures. ATTESTATION BY PHYSICIAN I reviewed the documentation, medical decision making, and treatment plan as noted by the mid-level provider above. I agree with the findings and plan of care. Rober Horan MD, NELLY J ARNP March 04, 2025 10:04
--- NOTE | 2025-03-04 10:14 | HMCIMG ---
CHEST 1VW HISTORY: Post CABG COMPARISON: 03/03/2025 FINDINGS: A frontal projection of the chest was obtained. Mild bilateral pulmonary infiltrates are seen may be related to mild pulmonary vascular congestion with possible superimposed pneumonitis. Poststernotomy changes are seen. The heart is enlarged. Degenerative changes of the thoracolumbar spine are present. No evidence of aortic calcification is seen. IMPRESSION: 1. Mild bilateral pulmonary infiltrates are seen may be related to mild pulmonary vascular congestion with possible superimposed pneumonitis.
[2025-03-04] MEDS: ISOSORBIDE MONO 30MG SR TAB PO SCH (12:18)
[2025-03-04] MEDS: furoSEMIDE 20MG VIAL IV ONE (12:26)
[2025-03-04 13:47] LABS: HEMATOCRIT 22.4 % (36-48)
--- NOTE | 2025-03-04 15:28 | NUR ---
CM NOTE/WOH APPROVED CM spoke to Coco with [employer]. States patient has insurance approval. ALAINA updated Renea ONEILL with Dr. Rubin. Per Coco, insurance auth valid untill 03/09. Addendum: 03/04/25 at 1530 by MIGNON BARRETT CM Amended: Links added.
[2025-03-05] VITALS (8 sets, daily range): BP systolic 113–146; BP diastolic 54–72; PULSE 73–79; RESP 16–20; TEMP 98.2–98.5; O2SAT 87–98
[2025-03-05 04:32] LABS: HEMATOCRIT 29.3 % (36-48); MEAN CORPUSCULAR HEMOGLOBIN 30.1 pg (27.0-33.0); MEAN CORPUSCULAR HGB CONC 32.8 g/dL (32.0-36.0); MEAN CORPUSCULAR VOLUME 91.8 fL (79-99); RED BLOOD CELL COUNT(AUTO) 3.19 MIL/uL (4.00-5.50); RED CELL DISTRIBUTION WIDTH 13.4 % (11.0-15.5); WHITE BLOOD COUNT (AUTO) 7.6 K/uL (4.8-10.8)
[2025-03-05 04:49] LABS: POTASSIUM 3.7 mmol/L (3.5-5.1)
[2025-03-05] MEDS ORDERED: PoTASSium chl 10% ELIXIR 20MEQ 20 MEQ/15 ML UDCUP PO PRN (06:00)
[2025-03-05] MEDS ORDERED: PoTASSium chloRIDE 10MEQ/100ML 100 ML IV PRN (06:00)
[2025-03-05] MEDS: PoTASSium chloRIDE 20MEQ ER 20 MEQ ERTAB PO PRN (06:04)
--- NOTE | 2025-03-05 09:04 | PN ---
[facility] CARDIOLOGY PROGRESS NOTE Date Patient Seen: March 05, 2025 Time of Visit: 09:01 Interval History: This is a 64-year-old female with past medical history of hypertension, dyslipidemia, hypothyroidism, breast cancer status post right mastectomy, type 2 diabetes mellitus, ESRD now status post history of kidney transplant, sleep apnea, vomiting with fenofibrate therapy, coronary artery disease with history of remote PTCA and stenting of the distal left circumflex with a 2.5 x 28 mm Promus drug-eluting stent 01/18/2014. She was evaluated as an outpatient for progressive worsening dyspnea on exertion and a Lexiscan Cardiolite stress test on 11/13/2024 demonstrated moderate inferolateral ischemia. A cardiac catheterization on 01/06/2025 demonstrating severe three-vessel CAD including 60 to 70% in-stent restenosis of the mid LAD, 60% in-stent restenosis of the first diagonal, 80% OM1 stenosis, 75% OM2 stenosis, 75% mid left circumflex stenosis and diffuse 90% mid RCA stenosis in a small, non dominant RCA. LVEF was greater than 70% preoperatively. She underwent an elective off pump CABG x 2, with ESPINOSA to the LAD and saphenous vein graft to the OM2 on 03/01/[address] Gee Rubin. Operative note reports that the RCA was nondominant and small vessels and the RCA was not bypassed. She has had a stable postoperative course other than postop blood loss anemia with a hemoglobin of 7.3 On 03/04/2025 status post transfusion of 1 unit of PRBC's. She is sitting up in the chair this morning, offers no complaints of dyspnea, no chest pain. Telemetry has demonstrated a normal sinus rhythm with heart rate 70-80 beat per minute range. Physical Examination: GENERAL: No acute distress. HEAD: Normal with no signs of head trauma. EYES: PERRLA, EOMI, conjunctiva and sclera normal. NECK: Supple without JVD. Carotids normal without bruit LUNGS: Diminished breath sounds at the bases bilaterally with poor inspiratory effort. HEART: Normal rate and rhythm. Normal S1 and S2 without murmurs, gallop or rub. Median sternotomy is with dressing. VASC: Peripheral pulses +2 bilaterally. EXT: No clubbing, cyanosis, there is trace of pedal edema bilaterally. NEURO: Awake, alert, and oriented x3. No focal neurological deficits noted. Laboratory: Hematology Labs: Test 03/05/25 03:53 Range/Units White Blood Count 7.6 4.8-10.8 K/uL Red Blood Count 3.19 #L 4.00-5.50 MIL/uL Hemoglobin 9.6 #L 12.0-16.0 g/dL Hematocrit 29.3 #L 36-48 % Mean Corpuscular Volume 91.8 79-99 fL Mean Corpuscular Hemoglobin 30.1 27.0-33.0 pg Mean Corpuscular Hemoglobin Concent 32.8 32.0-36.0 g/dL Red Cell Distribution Width 13.4 11.0-15.5 % Platelet Count 131 # 130-400 K/uL Mean Platelet Volume 10.8 H 7.5-10.5 fL Nucleated Red Blood Cells 0.0 0.0-0.19 % Chemistry Labs: Test 03/05/25 05:16 03/05/25 03:53 Range/Units Whole Blood Glucose 173 H 70-110 MG/DL Bedside Glucose Comment Notified Nurse Sodium Level 141 136-145 mmol/L Potassium Level 3.7 3.5-5.1 mmol/L Chloride Level 105 101-111 mmol/L Carbon Dioxide Level 31 21-32 mmol/L Blood Urea Nitrogen 23 H 7-18 mg/dL Creatinine 1.0 0.5-1.0 mg/dL Glomerular Filtration Rate Calc 63 >90 mL/min Random Glucose 154 H 70-105 mg/dL Total Calcium 9.5 8.5-10.1 mg/dL Diagnostics / Radiology: Chest x-ray 03/04/2025 demonstrates cardiomegaly and left effusion Impression and Plan: Severe three-vessel coronary artery disease (60-70% InStent restenosis of the mid LAD, 60% InStent restenosis of the 1st diagonal, 80% OM1 stenosis, 75% OM2 stenosis, 75% mid left circumflex stenosis and diffuse 90% mid RCA stenosis in a small nondominant RCA) by cardiac catheterization 01/06/2025 Normal LV systolic function with an LVEF of greater than 70% by cardiac catheterization 01/06/2025: Status post off pump coronary artery bypass graft x2 with ESPINOSA to the LAD and saphenous vein graft to the OM2 on 03/01/[address] Gee Rubin. Operative note reports that the RCA was nondominant and small vessels and the RCA was not bypassed: -continue usual postop course -continue oral nitrates with isosorbide mononitrate ER 30 mg p.o. daily given that the RCA was diffusely diseased, small-vessel and was not bypassed -continue aspirin 81 mg daily, atorvastatin 40 mg nightly, and metoprolol tartrate 12.5 mg b.i.d. Hypertension: -stable and continue oral nitrates and beta-cristiano therapy Dyslipidemia: -continue atorvastatin 40 mg p.o. q.h.s. Acute, postoperative blood loss anemia with hemoglobin of 7.3 On 03/04/2025 status post transfusion of1 unit of PRBC's Comorbidities: Hypothyroidism on supplements Breast cancer status post right mastectomy Type 2 diabetes mellitus History of end-stage renal disease now status post renal transplant Sleep apnea GERMAN MONTEMAYORP March 05, 2025 09:04
--- NOTE | 2025-03-05 11:19 | PN ---
[facility] PROGRESS NOTE Date Patient Seen: March 05, 2025 Time of Visit: 11:19 Supervising Physician: Elijah Martin MD Primary Care Physician: Dr. Aurelia Sandoval Outpatient Specialists: [ ] Inpatient Consults: [ ] PROBLEM LIST: Severe multivessel CAD s/p CABG x2 03/01/2025, by Dr. Schaffer Hypertension. Dyslipidemia. Hypothyroidism. ESRD, previously on hemodialysis , now s/p kidney transplant. Hypokalemia. Hypomagnesemia. Reactive leukocytosis. T2DM History of breast cancer status post right mastectomy. INTERVAL HISTORY: Pt is doing well today. In no apparent distress at Room air. She is working with PT. Pt report she feeles better no complains at this time. she has received 1 unit of prbc's yesterday and hemoglobin today has improved to 9.6. Kidney is doing well cr 1.0 and gfr of 63. Chest XR with No acute pulmonary infiltrate is seen. she is pending SNF. REVIEW OF SYSTEMS: General: No malaise or fever. Neurological: No fainting episodes or seizures. HEENT: No nasal congestion or nasal secretion. Respiratory: No cough, shortness of breath, or wheezing, per patient on tenderness to chest tube site. Cardiac: No chest pain or palpitations. yes to feelin hand and feet swelling. Gastrointestinal: No vomiting or diarrhea. Genitourinary: No dysuria hematuria. Skin: No rashes or lesions. Hematological: No bruises or bleeding. Musculoskeletal: No joint pains or arthralgias. Psychiatric: No depression or panic attacks. PHYSICAL EXAM: GENERAL: Awake alert and oriented x3. Recovering post CABG. HEENT: EOMI, Sclera non icteric, moist mucosa NECK: Supple, no JVD, trachea midline LUNGS: Clear breath sounds bilaterally. No wheezes HEART: Regular rate and rhythm. Normal S1 and S2, without murmurs ABD: Abdomen soft, nontender. Bowel sounds present EXT: No clubbing cyanosis or edema NEURO: GCS of 15 on neurological deficits no focal weakness or dizziness. Vital Signs (last 8hr) Date Time Temp Pulse Resp B/P (MAP) Pulse Ox O2 Delivery O2 Flow Rate FiO2 03/05/25 07:33 74 20 N/A Room Air 21 03/05/25 07:00 98.4 76 16 146/72 97 Room Air 03/05/25 03:26 98.4 79 16 121/60 94 Nasal Cannula 2.0 LABS: Hematology Labs: Test 03/05/25 03:53 Range/Units White Blood Count 7.6 4.8-10.8 K/uL Red Blood Count 3.19 #L 4.00-5.50 MIL/uL Hemoglobin 9.6 #L 12.0-16.0 g/dL Hematocrit 29.3 #L 36-48 % Mean Corpuscular Volume 91.8 79-99 fL Mean Corpuscular Hemoglobin 30.1 27.0-33.0 pg Mean Corpuscular Hemoglobin Concent 32.8 32.0-36.0 g/dL Red Cell Distribution Width 13.4 11.0-15.5 % Platelet Count 131 # 130-400 K/uL Mean Platelet Volume 10.8 H 7.5-10.5 fL Nucleated Red Blood Cells 0.0 0.0-0.19 % Chemistry Labs: Test 03/05/25 05:16 03/05/25 03:53 Range/Units Whole Blood Glucose 173 H 70-110 MG/DL Bedside Glucose Comment Notified Nurse Sodium Level 141 136-145 mmol/L Potassium Level 3.7 3.5-5.1 mmol/L Chloride Level 105 101-111 mmol/L Carbon Dioxide Level 31 21-32 mmol/L Blood Urea Nitrogen 23 H 7-18 mg/dL Creatinine 1.0 0.5-1.0 mg/dL Glomerular Filtration Rate Calc 63 >90 mL/min Random Glucose 154 H 70-105 mg/dL Total Calcium 9.5 8.5-10.1 mg/dL DIAGNOSTICS / RADIOLOGY RESULTS: [ ] PATIENT: HARI GTZ MR#: [id number] : 1960 SEX: F AGE: 64 LOCATION: [facility] ORDER 2300 STATUS: ADM IN REPORT#: [id number] SERVICE 0400 REASON: s/p CABG ORDERING PHYSICIAN: SUE SCHAFFER MD PROCEDURE: CXR1VW - CHEST 1VW CHEST 1VW HISTORY: Post CABG COMPARISON: 03/04/2025 FINDINGS: A frontal projection of the chest was obtained. No acute pulmonary infiltrates is seen. Poststernotomy changes are seen. The heart is enlarged. Degenerative changes of the thoracolumbar spine are present. No evidence of aortic calcification is seen. IMPRESSION: 1. No acute pulmonary infiltrate is seen. DICTATED BY: MARYANNE RODRÍGUEZ MD DATE: 03/05/258 ELECTRONICALLY SIGNED BY: MARYANNE RODRÍGUEZ MD DATE: 03/05/25 1220 PLAN continue working with IS wean o2 as possible monitor electrolytes and replace accordingly monitor kidney function closely and avoid nephrotoxic medications given that she has a single kidney. Pending SNF NEURO: Minimize central acting medications as possible. Maintain fall precautions, adequate lighting during the day PULMONARY: Supplemental 02 as needed. Maintain aspiration precautions at all times CARDIOVASCULAR: Follow hemodynamics. Vital signs per facility protocol GI & NUTRITION: Continue with nutritional support. Continue stool softeners and laxatives as needed. KIDNEYS & ELECTROLYTES: Strict monitoring of intake, output and overall fluid balance. Avoid nephrotoxic medications to the extent possible. Medications to be dosed according to renal function. Monitor electrolytes and replace as needed ENDOCRINE: Maintain blood glucose between 100-180 at all times. Hypoglycemia protocol in place INFECTIOUS DISEASE: Trend temperature, WBC and procalcitonin level Follow cultures, deescalate antibiotics as soon as possible. Panculture if new onset fever ONCOLOGY/HEMATOLOGY/COAGULATION: Monitor for s/s of bleeding Monitor hemoglobin, coagulation studies as needed SKIN: Pressure ulcer prevention per facility protocol Specialty mattress ORTHO/REHAB: Continue PT/OT Prophylaxis: Continue GI and DVT prophylaxis Code Status: Full Resuscitation Disposition: TBD Other: Total patient care time exceeds 35 minutes excluding all procedures. ATTESTATION BY PHYSICIAN The patient has been seen and evaluated, the case has been discussed with the CAUSTIC PREPARER, I agree with the clinical findings and plan of care. Elijah Martin MD, NELLY J ARNP March 05, 2025 11:19
--- NOTE | 2025-03-05 12:20 | HMCIMG ---
CHEST 1VW HISTORY: Post CABG COMPARISON: 03/04/2025 FINDINGS: A frontal projection of the chest was obtained. No acute pulmonary infiltrates is seen. Poststernotomy changes are seen. The heart is enlarged. Degenerative changes of the thoracolumbar spine are present. No evidence of aortic calcification is seen. IMPRESSION: 1. No acute pulmonary infiltrate is seen.
[2025-03-06] VITALS (7 sets, daily range): BP systolic 126–145; BP diastolic 62–72; PULSE 61–82; RESP 18; TEMP 97.5–98.6; O2SAT 95–98
[2025-03-06 05:19] LABS: HEMATOCRIT 27.6 % (36-48); MEAN CORPUSCULAR HGB CONC 33.3 g/dL (32.0-36.0); MEAN CORPUSCULAR VOLUME 89.9 fL (79-99); RED BLOOD CELL COUNT(AUTO) 3.07 MIL/uL (4.00-5.50); RED CELL DISTRIBUTION WIDTH 13.4 % (11.0-15.5); WHITE BLOOD COUNT (AUTO) 5.3 K/uL (4.8-10.8)
[2025-03-06 05:30] LABS: CREATININE 0.8 mg/dL (0.5-1.0); POTASSIUM 3.5 mmol/L (3.5-5.1)
[2025-03-06] MEDS: MAGNESIUM 2GM PREMIX 50ML 50 ML IV PRN (08:00)
--- NOTE | 2025-03-06 09:46 | HMCIMG ---
Exam Type: CHEST 1VW Clinical Information: s/p CABG Comparison: None Findings: There is cardiomegaly and there is status post median sternotomy. The lungs are clear of infiltrates. Impression: Clear lungs.
--- NOTE | 2025-03-06 11:20 | DS ---
[facility] DISCHARGE SUMMARY Date Patient Seen: March 06, 2025 Time of Visit: 11:20 Supervising Physician: [Manpreet Koehler MD Primary Care Physician: Dr. Aurelia Sandoval Outpatient Specialists: [ ] Inpatient Consults: YADIRA Mendoza Attending : DR Rubin PROBLEM LIST: Severe multivessel CAD s/p elective CABG x2 03/01/2025, by Dr. Rubin postoperative anemia s/p 1unit of PRBC Hypertension. Dyslipidemia. Hypothyroidism. ESRD, previously on hemodialysis , now s/p kidney transplant. Hypokalemia. resolved Hypomagnesemia. resolved Reactive leukocytosis, resolving T2DM History of breast cancer status post right mastectomy. HOSPITAL COURSE: HPI Chief Complaint: Elective admission for coronary artery bypass grafting (CABG) x2 vessels. The patient was admitted electively for CABG x2 on 03/01/2025 following a diagnostic left heart catheterization performed on 01/06/2025, which demonstrated multivessel coronary artery disease with a preserved left ventricular ejection fraction (LVEF >70%). She underwent successful surgical revascularization and was transferred to the ICU for standard post-operative critical care monitoring. Postoperatively, she was weaned off pressors per CV protocol and remained hemodynamically stable. She was maintained in sinus rhythm with a heart rate in the 70s and blood pressure within normal range today. She remained afebrile throughout the stay. One unit of packed red blood cells was transfused during the postoperative period for anemia, with no adverse events. She denied chest pain, shortness of breath, dizziness, or generalized weakness. Physical exam was unremarkable incision site cleand dry and well approximated with no s/s of infection, with no signs of fluid overload, lungs clear bilaterally, regular cardiac rhythm, and no lower extremity edema. Pulmonary function was noted to be improving with incentive spirometry volumes up to 1.2L. Electrolyte imbalances (hypokalemia and hypomagnesemia) were corrected as per protocol. No significant arrhythmias, infections, or surgical complications were noted. She progressed appropriately and was deemed stable for transfer to a senior living facility for continued rehabilitation. Discharge Condition: Hemodynamically stable, afebrile, alert and oriented, tolerating oral intake, with improving pulmonary function and no signs of active infection or cardiac decompensation. Discharge Disposition: [facility] Laboratory Tests Test 03/06/25 04:39 03/06/25 05:42 03/06/25 11:47 03/06/25 11:57 White Blood Count 5.3 K/uL (4.8-10.8) Red Blood Count 3.07 MIL/uL (4.00-5.50) L Hemoglobin 9.2 g/dL (12.0-16.0) L Hematocrit 27.6 % (36-48) L Mean Corpuscular Volume 89.9 fL (79-99) Mean Corpuscular Hemoglobin 30.0 pg (27.0-33.0) Mean Corpuscular Hemoglobin Concent 33.3 g/dL (32.0-36.0) Red Cell Distribution Width 13.4 % (11.0-15.5) Platelet Count 151 K/uL (130-400) Mean Platelet Volume 10.7 fL (7.5-10.5) H Nucleated Red Blood Cells 0.0 % (0.0-0.19) Sodium Level 143 mmol/L (136-145) Potassium Level 3.5 mmol/L (3.5-5.1) 3.3 mmol/L (3.5-5.1) L Chloride Level 107 mmol/L (101-111) Carbon Dioxide Level 29 mmol/L (21-32) Blood Urea Nitrogen 14 mg/dL (7-18) Creatinine 0.8 mg/dL (0.5-1.0) Glomerular Filtration Rate Calc 82 mL/min (>90) Random Glucose 205 mg/dL (70-105) H Total Calcium 9.4 mg/dL (8.5-10.1) Magnesium Level 1.40 mg/dL (1.80-2.40) L 2.00 mg/dL (1.80-2.40) Whole Blood Glucose 196 MG/DL (70-110) H 244 MG/DL (70-110) H Bedside Glucose Comment Notified Nurse Vital Signs Date Time Temp Pulse Resp B/P (MAP) Pulse Ox O2 Delivery O2 Flow Rate FiO2 03/06/25 14:03 98.1 65 18 127/62 96 Room Air 0.0 03/06/25 08:00 21 ACTIVE PROBLEM LIST FOR THE HOSPITALIZATION: Multivessel CAD s/p CABG 2 (03/01/2025) Preserved LVEF Diastolic heart failure Postoperative anemia (resolved) Hyperlipidemia Hypothyroidism Hypokalemia (resolved) Hypomagnesemia (resolved) ESRD s/p kidney transplant (stable renal function) History of breast cancer stable, s/p right mastectomy CHRONIC PROBLEMS: continue previous management per PCP unless otherwise indicated PEDIATRIC LICENSED PRACTICAL NURSE FINDINGS/RECOMMENDATIONS: Per cardiology ( DR Tsia) follow up in 3 weeks. Continue with the following meds: Aspirin 81 mg PO daily Atorvastatin 40 mg PO daily Metoprolol tartrate 12.5 mg PO BID Isosorbide mononitrate 30 mg PO daily Furosemide 20 mg PO BID PROCEDURES: as mentioned above DISCHARGE MEDICATIONS: CURRENT MEDICATIONS Acetaminophen (TYLenol 325MG TAB) 650 mg Q4H PRN PO Temp >38.3C Acetaminophen (TYLenol 325MG TAB) 650 mg Q6H PRN PO MILD PAIN (1-3) Acetaminophen (TYLenol 650MG SUPPOSITORY) 650 mg Q4H PRN RC Temp >38.3C Aspirin (Aspirin 81mg Ec Tab) 81 mg DAILY PO Last administered on 03/06/25 08:02 Atorvastatin Calcium (LIPItor 40MG) 40 mg HS PO Last administered on 03/05/25 20:50; Brimonidine Tartrate (Alphagan P) 1 DROP TID OS Last administered on 03/06/25 13:55; Dextrose (D50w) 50 ml AD PRN IV HYPOGLYCEMIA PROTOCOL; Start 03/01/25 at 09:30; Docusate Sodium (COLace 100MG CAP) 100 mg BID PO Last administered on 03/05/25 20:50; Enoxaparin Sodium (Lovenox) 30 mg DAILY SQ Last administered on 03/06/25 08:01; Famotidine (Pepcid 20mg Vial) 20 mg po q24hrs Furosemide (LASix 20MG TAB) 20 mg Q12H PO Last administered on 03/06/25 08:02; Insulin Human Regular (humuLIN R 100 UNIT/ML 3ML) INSULIN SLIDING SCAL... ACHS SQ Last administered on 03/06/25 12:02; Isosorbide Mononitrate (Imdur 30mg Sr) 30 mg DAILY PO Last administered on 03/06/25 08:02; Lactulose (Constulose 20gm/ 30ml Udcup) 20 gm BID PRN PO CONSTIPATION; Latanoprost (Xalatan) 1 DROP HS OS Last administered on 03/05/25 20:52; Levothyroxine Sodium (SYNTHroid 88MCG TAB) 88 mcg SYN PO Last administered on 03/06/25 06:45; Magnesium Hydroxide (Milk Of Magnesium 30ml) 30 ml DAILY PRN PO CONSTIPATION; Metoprolol Tartrate (loprESSOR) 12.5 mg BID PO Last administered on 03/06/25 08:02; Mycophenolate Mofetil (Cellcept) 500 mg BID PO Last administered on 03/06/25 08:02; Ondansetron HCl (zoFRAN 4MG INJ) 4 mg Q6H PRN Potassium Chloride (K-Dur/Klor-Con 20meq) 10 meq AD PRN PO POTASSIUM PROTOCOL Last administered on 03/06/25at 10:40; Potassium Chloride (KCl 10% Elixir 20meq/15ml) 10 meq AD PRN PO POTASSIUM PROTOCOL; Sodium Chloride (NS Flush 10ml) 10 ml Q8H PRN IVP IV LINE FLUSH; Start 03/01/25 at 09:30; Stop 03/06/25 at 15:02; Status DC Tacrolimus (ProgRAF 1MG) 3 mg Q12H PO Last administered on 03/06/25at 08:02; Start 03/01/25 at 09:30; Pt hemodynamically stable and afebrile at time of discharge. PCP notified of patients admission, hospital course and discharge. Medication Profile: No Active Prescriptions or Reported Meds PHYSICAL EXAM: GENERAL: Awake alert and oriented x3. Recovering post CABG. HEENT: EOMI, Sclera non icteric, moist mucosa NECK: Supple, no JVD, trachea midline LUNGS: Clear breath sounds bilaterally. No wheezes HEART: Regular rate and rhythm. Normal S1 and S2, without murmurs ABD: Abdomen soft, nontender. Bowel sounds present EXT: No clubbing cyanosis or edema NEURO: GCS of 15 on neurological deficits no focal weakness or dizziness. FOLLOW-UP: Follow-up with PCP in 2-3 days after Discharge from SNF Cardiology: In 3 weeks Cardiothoracic surgery: In 3 weeks Continue rehabilitation at [facility] RECOMMENDATIONS: See Discharge Instructions This case was seen and discussed with my supervising physician. More than 30 minutes spent on discharge process, including evaluation of the patient, discussion with nursing staff, medication reconciliation and follow-up appointments ATTESTATION BY PHYSICIAN I have evaluated the patient chart, medical records, and spoke with appropriate staff. I reviewed the documentation, medical decision making, and treatment plan as noted by the mid-level provider above. I agree with the findings and plan of care. Manpreet Koehler MD, [facility] March 06, 2025 11:20
[2025-03-06 12:30] LABS: POTASSIUM 3.3 mmol/L (3.5-5.1)
[2025-03-06] MEDS: PoTASSium chloRIDE 20MEQ ER 20 MEQ ERTAB PO ONE (12:55)
--- NOTE | 2025-03-06 13:00 | PN ---
This is a 64-year-old female with a history of coronary artery disease with a history of remote coronary stenting in 2013 and 2016, hypertension, hyperlipidemia, hypothyroidism, type 2 diabetes mellitus, end-stage renal disease status post kidney transplant, obstructive sleep apnea and history of breast cancer status post right mastectomy. She was admitted for elective CABG x2 03/01/2025. LVEF greater than 70% by left heart catheterization 01/06/2025. She is currently in sinus rhythm with PACs with heart rates in the 70s. Most recent blood pressure 126/64. Chest x-ray today shows clear lungs. White blood count 5.3, hemoglobin 9.2, hematocrit 27.6, platelets 151, creatinine 0.8, potassium 3.5, magnesium 2.0. She denies chest pain, shortness or breath, dizziness or weakness. On exam, she is in no acute distress, regular rate and rhythm, lungs are clear to auscultation bilaterally, no lower extremity edema is noted. Assessment: 1. Multivessel coronary artery disease status post CABG x2 03/01/2025. 2. Preserved LVEF. 3. Postop anemia. 4. Type 2 diabetes mellitus. 5. End-stage renal disease status post kidney transplant. 6. Hypertension. 7. Hyperlipidemia. Plan: 1. She is status post elective CABG x2 03/01/2025 due to multivessel coronary artery disease. Continue aspirin 81 mg once daily, atorvastatin 40 mg once daily, metoprolol tartrate 12.5 mg twice daily and isosorbide mononitrate 30 mg once daily. 2. Continue furosemide 20 mg twice daily. 3. She is cleared to be discharged to SNF from a cardiology standpoint. 4. Follow-up with Dr. Cid in 3 weeks. Vitals/Labs Vital Signs Date Time Temp Pulse Resp B/P (MAP) Pulse Ox O2 Delivery O2 Flow Rate FiO2 03/06/25 11:00 98.6 61 18 126/64 99 Room Air 03/06/25 08:00 0 21 Laboratory Tests 03/06/25 04:39 03/06/25 11:57 SULEMA AGUILERA March 06, 2025 13:00
--- NOTE | 2025-03-06 13:42 | NUR ---
Report given to nurse Mcclelland from [facility]. All questions answered, nurse verbalized understanding.
--- NOTE | 2025-03-06 14:03 | NUR ---
Patient alert and oriented x4, being discharged to [facility]. Patient educated that at discharge from the facility she will receive list of medications to continue at home and follow up abdulaziz with Dr. Cid in 3 wks, Dr. Rubin 1-2 weeks, and PCP. IV removed without complications. All questions answered, patient verbalized understanding. Patient gathered all belongings and took with her at discharge.
--- NOTE | 2025-03-06 14:45 | NUR ---
Vishal Cortez transport from [facility] picked up the patient at this time.
== END 2025-03-06 14:45 | DRG 235 ==
LOC: DAHIP 03-01 06:20 → 2CV 03-01 11:12 → 2CH 03-02 07:02 → 2DH 03-03 14:57
PROVIDERS: ADMIT Thoracic Surgery (Cardiothoracic Vascular Surgery); ATTEND Thoracic Surgery (Cardiothoracic Vascular Surgery)
PROC: 5A1935Z Respiratory Ventilation, Less than 24 Consecutive Hours (ICD-10-PCS; 2025-03-01)
PROC: 02100Z9 Bypass Coronary Artery, One Artery from Left Internal Mammary, Open Approach (ICD-10-PCS; principal; 2025-03-01 07:45)
PROC: 021009W Bypass Coronary Artery, One Artery from Aorta with Autologous Venous Tissue, Open Approach (ICD-10-PCS; 2025-03-01 07:45)
PROC: 06BQ4ZZ Excision of Left Saphenous Vein, Percutaneous Endoscopic Approach (ICD-10-PCS; 2025-03-01 07:45)
PROC: 0PH000Z Insertion of Rigid Plate Internal Fixation Device into Sternum, Open Approach (ICD-10-PCS; 2025-03-01 07:45)
DX: T82.855A Stenosis of coronary artery stent, initial encounter (principal); J95.1 Acute pulmonary insufficiency following thoracic surgery; N18.6 End stage renal disease; I12.0 Hypertensive chronic kidney disease with stage 5 chronic kidney disease or end stage renal disease; Z94.0 Kidney transplant status; D62 Acute posthemorrhagic anemia; I25.10 Atherosclerotic heart disease of native coronary artery without angina pectoris; E03.9 Hypothyroidism, unspecified; E11.22 Type 2 diabetes mellitus with diabetic chronic kidney disease; D72.829 Elevated white blood cell count, unspecified; E78.5 Hyperlipidemia, unspecified; E83.42 Hypomagnesemia; E87.6 Hypokalemia; I95.81 Postprocedural hypotension; G47.30 Sleep apnea, unspecified; E87.70 Fluid overload, unspecified; Z79.82 Long term (current) use of aspirin; Z83.3 Family history of diabetes mellitus; Z85.3 Personal history of malignant neoplasm of breast; Z90.11 Acquired absence of right breast and nipple; Z95.5 Presence of coronary angioplasty implant and graft; Z79.899 Other long term (current) drug therapy; Y83.1 Surgical operation with implant of artificial internal device as the cause of abnormal reaction of the patient, or of later complication, without mention of misadventure at the time of the procedure
CPT/HCPCS: 36415; 36600; 71045; 80048; 80053; 80061; 82330; 82435; 82803; 82947; 82948; 83036; 83605; 83735; 83880; 84100; 84132; 84295; 85014; 85018; 85025; 85027; 85347; 85610; 85730; 86850; 86900; 86901; 86923; 87641; 93005; 93312; 93325; 93880; 94002; 94010; 94150; A4450; A7048; C1757; G0378; J0171; J0690; J1644; J1650; J1815; J1940; J2003; J2250; J2270; J2405; J2440; J2704; J2720; J3010; J3475; J3480; J3490; J7030; J7040; J7507; J7517; P9016; A4213; A4215; A4216; A4221; A4222; A4223; A4649; A4663; A4930; A5120; A6204; A6260; C1713; C1776